=== PATIENT | male | born 1935 | race Caucasian/White ===

== ENCOUNTER 2016-12-20 17:04 | Emergency (ER) | payer MEDICARE ==
[~2016-12-20] VITALS: Ht 177.8 cm; Wt 100.5 kg
[2016-12-20 17:11] VITALS: BP 137/77
[2016-12-20 18:43] LABS: PH 5 (5-8); SQUAMOUS EPITHELIAL 0-2 /hpf; URINE APPEARANCE Hazy; URINE BACTERIA None Seen /hpf; URINE BILIRUBIN Negative (NEGATIVE); URINE BLOOD 2+ (NEGATIVE); URINE COLOR Amber; URINE GLUCOSE Negative (NEGATIVE); URINE KETONE Negative (NEGATIVE); URINE RBC >50 /hpf; URINE UROBILINOGEN >=4.0 mg/dL (NEGATIVE)
[2016-12-20 18:49] LABS: BASO % 0.1 % (0.0-2.0); EOS # 0.1 (0.0-0.7); EOS % 0.9 % (0-4.0); GRAN # 10.9 (1.4-6.5); GRAN % 79.9 % (42.2-75.2); HEMATOCRIT 44.6 % (42.0-52.0); HEMOGLOBIN 14.6 g/dl (13.5-18.0); LYMPH # 1.5 (1.2-3.4); LYMPH % 10.9 % (20.0-51.0); MEAN CELL VOLUME 92 fl (80.0-100.0); MEAN CORPUSCULAR HEMOGLOBIN 30 pg (27.0-31.0); MEAN CORPUSCULAR HGB CONC 33 g/dl (33.0-37.0); MEAN PLATELET VOLUME 11.1 fl (7.4-10.4); MONO # 1.1 (0.1-0.6); MONO % 7.9 % (1.7-9.3); PLATELET COUNT 183 K/mm3 (130-400); RED BLOOD COUNT 4.85 M/mm3 (4.20-5.60); REDCELL DISTRIBUTION WIDTH-CV 13.9 % (11.5-14.5); WHITE BLOOD COUNT 13.6 K/mm3 (4.8-10.8)
[2016-12-20 19:05] LABS: ALBUMIN 3.9 gm/dL (3.5-5.0); CALCIUM 8.9 mg/dL (8.4-10.2); CREATININE, serum 0.92 mg/dL (0.66-1.25); POTASSIUM 3.6 mmol/L (3.4-5.0); TOTAL PROTEIN 7.1 gm/dL (6.4-8.2)
[2016-12-20 19:12] LABS: TROPONIN-I 0.012 ng/mL (0.000-0.034)
[2016-12-20 19:24] LABS: C-REACTIVE PROTEIN 16.7 mg/dL (0.0-0.9)
[2016-12-20] MEDS ORDERED: ZOFRAN ODT4 MG PO (20:41)
[2016-12-20 20:57] VITALS: PULSE 100; TEMP 98.2
== END 2016-12-20 20:55 | disposition home or self-care (01) ==
LOC: COL.ER 17:04
PROVIDERS: Physician Assistant
DX: K86.89 Other specified diseases of pancreas (principal); R31.9 Hematuria, unspecified; R11.2 Nausea with vomiting, unspecified
CPT/HCPCS: J7030; Q9967

== ENCOUNTER 2020-08-13 23:15 | Inpatient (IN) | payer MEDICARE ==
[~2020-08-13] VITALS: Ht 175.3 cm; Wt 83.3 kg
[~2020-08-13 23:15] MED LIST: ZOFRAN ODT4 MG PO
[2020-08-14] VITALS (389 sets, daily range): BP systolic 98–130; BP diastolic 57–94; PULSE 88–123; TEMP 97.8–98.9; O2SAT 43–100
[2020-08-14 00:05] LABS: MEAN CELL VOLUME 90 fl (80.0-100.0); MEAN CORPUSCULAR HEMOGLOBIN 29 pg (27.0-31.0); MEAN CORPUSCULAR HGB CONC 33 g/dl (33.0-37.0); MEAN PLATELET VOLUME 11.1 fl (7.4-10.4); PLATELET COUNT 235 K/mm3 (130-400); RED BLOOD COUNT 5.11 M/mm3 (4.20-5.60); REDCELL DISTRIBUTION WIDTH-CV 14.6 % (11.5-14.5)
[2020-08-14 00:26] LABS: INR 1.5 (0.8-3.0); PROTHROMBIN TIME 16.5 SECONDS (9.7-12.8)
[2020-08-14 00:28] LABS: PARTIAL THROMBOPLASTIN TIME 28.4 SECONDS (26.0-37.0)
[2020-08-14 00:38] LABS: C-REACTIVE PROTEIN 22.8 mg/dL (0.0-0.9)
[2020-08-14 00:59] LABS: ALBUMIN 3.1 gm/dL (3.5-5.0); BILIRUBIN,TOTAL 0.6 mg/dL (0.0-1.0); CALCIUM 8.5 mg/dL (8.4-10.2); CREATININE, serum 2.21 (0.66-1.25); POTASSIUM 5.6 mmol/L (3.4-5.0); TOTAL PROTEIN 6.8 gm/dL (6.4-8.2)
[2020-08-14 01:00] LABS: ERYTHROCYTE SEDIMENTATION RATE 16 mm/hr (0-30)
[2020-08-14 01:15] LABS: TROPONIN-I 0.13 ng/mL (0.000-0.035)
[2020-08-14 01:16] LABS: LYMPHOCYTE 2 % (20.0-51.0); METAMYELOCYTE 1 % (0-0); MYELOCYTE 1 % (0-0); NEUTROPHILS 94 % (42.0-75.2); PLATELET ESTIMATE NORMAL (NORMAL)
[2020-08-14 03:13] LABS: COLLECTION METHOD CLEAN CATCH
[2020-08-14 03:27] LABS: PH 5 (5-8); SQUAMOUS EPITHELIAL 0-2 /hpf; URINE APPEARANCE Clear; URINE BACTERIA Rare /hpf; URINE BILIRUBIN Negative (NEGATIVE); URINE BLOOD 1+ (NEGATIVE); URINE COLOR Yellow; URINE GLUCOSE 1+ (NEGATIVE); URINE KETONE Negative (NEGATIVE); URINE LEUKOCYTE ESTERASE 1+ (NEGATIVE); URINE NITRATE Negative (NEGATIVE); URINE PROTEIN(semi-quant) Negative (NEGATIVE); URINE UROBILINOGEN Negative (NEGATIVE)
[2020-08-14 03:27] LABS: CALCIUM 7.9 mg/dL (8.4-10.2); CREATININE, serum 1.82 (0.66-1.25); POTASSIUM 4.7 mmol/L (3.4-5.0)
--- NOTE | 2020-08-14 06:28 | NUR ---
Vancomycin Initial Dosing Pharmacy Note Ordering provider: Bridger Fisher MD Indication/duration: Sepsis w/ possible UTI +/- cellulitis Relevant comorbidities: LABS: WBC = 24.2, SCr = 1.82 Recommendation: Will check troughs and follow levels. Loading dose: 1.5 grams Maintenance dose: 1.25 grams every 24 hours Trough goal: 15-20 ug/mL
[2020-08-14 06:34] LABS: CALCIUM 8.1 mg/dL (8.4-10.2); CREATININE, serum 1.7 (0.66-1.25); MAGNESIUM 2.5 mg/dL (1.6-2.3); PHOSPHOROUS 4.6 mg/dL (2.5-4.5); POTASSIUM 4.6 mmol/L (3.4-5.0)
[2020-08-14 06:44] LABS: TROPONIN-I 6 HR POST INITIAL 0.172 ng/mL (0.000-0.034)
--- NOTE | 2020-08-14 09:00 | NUR ---
All consults called to Urology; I/D & Critical Care MD. Reviewed patient's case with Dr. Dow today. At this time there are no new recommendations. Patient will have PICC line placed for easy access and blood draws. Patient is sleepy but answers all questions appropriatly. Skin w/d. pale in color. Lungs are diminshed in bases. No noted shortness of air. HR strong/regular. Abd soft; rounded. with noted bowel sounds. The right flank has red like rash noted with a long line of black "scab like" area. Skin at that spot is warm to touch. Patient c/o's discomfort in that area. El intact with clear yellow urine. Scrotal sack reddened with open areas throughout. Noted a moderate amount of yellow drainage from sores. Area cleansed and desenex powder applied as per orders. PPP. Noted 2+ edema in left lower leg. Patient moves independently in bed. Becomes tangled easily in cords. 02 on at 1L/NC.
--- NOTE | 2020-08-14 13:14 | NUR ---
Heparin qtt started at this time for report of bilateral DVT's. Attempted to explain purpose to patient but needs reinforced
--- NOTE | 2020-08-14 15:30 | NUR ---
Patient's friend Ms. Pike has arrived. Per patient she will be his medical contact. Licensing Engineer made aware. Update on patients condition given to her at this time. Questions answered. No other needs at this time.
--- NOTE | 2020-08-14 16:12 | NUR ---
Equal Opportunity Specialist met with patient to discuss discharge planning. Patient lives in [place] with his friends, Lurdes (ph#[phone]) and Fidencio. Patient does not have a primary care physician but was open to being set up with a PCP upon discharge. Patient states at one point he thought he had an apartment available at [facility], however he isn't sure if that's still available to him. Patient reports he does not have a preferred pharmacy as he does not regularly take medications. Patient has a cane that he uses for ambulation and reports ADLS have been very difficult for him recently. Patient isn't sure if he's ever done DPOA-HC, but reports his sand caster is Toro Schulz in [place]. SW discussed discharge planning with patient. SW discussed the possibility of rehab and patient advised he had a very bad experience with his mom's nursing facility in [place]. PT/OT have been ordered for patient. SHANNON then contacted patient's sand caster, Toro Schulz who advised patient does not have DPOA for Healthcare, only a trust for real estate. SW was contacted by admissions who advised patient's friend, Lurdes was here to see patient. SW escorted Lurdes to patient's room and again discussed DPOA-HC with patient. Patient states he is not and does have a daughter, but is estranged from her. Patient states he has not seen his daughter since she was 17 and could not recall her name at this time. Patient states when he last saw his daughter, she told him she wanted nothing to do with him and that he was a stranger to her. SW discussed the importance of Advance Directives especially when there is no contact with legal next of kin. Patient desires to designate his friend, Lurdes as DPOA-HC. SHANNON assisted patient in completing the form and brought in Connor DELATORRE to provide witness signature. Patient verbalized understanding of DPOA-HC and stated that signing this document meant that if needed, Lurdes could make medical decisions for him. SHANNON and RN provided witness signature, then SW provided original and copies to patient. SW also placed a copy on patient's chart. SHANNON again reviewed discharge planning with patient and Lurdes. SHANNON advised that PT/OT would work with patient and make recommendations. SHANNON also reviewed potential rehab options with patient and Lurdes. SHANNON then contacted Cordelia at [facility] and left a message. SHANNON will continue to follow. Discharge Plan: Awaiting PT/OT recommendations, possible placement needed.
--- NOTE | 2020-08-14 18:00 | NUR ---
Report given to JUAN RAMON Franklin on the surgical floor. Patient transfered upstairs to Room 344
--- NOTE | 2020-08-14 18:55 | NUR ---
Report with JUAN RAMON Hooks. Pt arrives to unit rm 344 via WC accompanied by JUAN RAMON Ryan. Pt assisted into bed and skin assessed. Call light in reach.
--- NOTE | 2020-08-14 19:51 | NUR ---
Patient's hep Xa came back at 0.78. Per protocol, heparin turned down to 13.5 ml/hr. Recheck will be at 0200.
--- NOTE | 2020-08-14 21:00 | NUR ---
Patient resting in bed. Requested a snack. Some complaints of pain in his scrotum. Scrotum is swollen and red. Patient is on 1 L of oxygen via nasal cannula. El catheter to dependent drainage draining clear yellow urine. IV fluids and heparin infusing to right upper arm PICC. Patient drinking lots of fluids. No other needs at this time. Call light in reach.
[2020-08-15] VITALS: BP 95/49; PULSE 79; TEMP 97.6
--- NOTE | 2020-08-15 01:56 | NUR ---
Lab called with positive blood cultures. NABIL Lopez, was notified.
[2020-08-15 04:03] VITALS: BP 110/58; PULSE 92; TEMP 98.4
[2020-08-15 07:31] LABS: INR 1.5 (0.8-3.0); PROTHROMBIN TIME 16.3 SECONDS (9.7-12.8)
[2020-08-15 07:39] LABS: ALBUMIN 2.3 gm/dL (3.5-5.0); BILIRUBIN,TOTAL 0.3 mg/dL (0.0-1.0); CALCIUM 7.5 mg/dL (8.4-10.2); CREATININE, serum 0.94 (0.66-1.25); MAGNESIUM 2.2 mg/dL (1.6-2.3); POTASSIUM 4.5 mmol/L (3.4-5.0); TOTAL PROTEIN 5.4 gm/dL (6.4-8.2)
[2020-08-15 07:40] VITALS: BP 109/56; PULSE 88; TEMP 98
[2020-08-15 07:54] LABS: MEAN CELL VOLUME 91 fl (80.0-100.0); MEAN CORPUSCULAR HGB CONC 32 g/dl (33.0-37.0); MEAN PLATELET VOLUME 11.3 fl (7.4-10.4); PLATELET COUNT 173 K/mm3 (130-400); REDCELL DISTRIBUTION WIDTH-CV 14.6 % (11.5-14.5)
[2020-08-15 08:11] LABS: HEMATOCRIT 32.6 % (42.0-52.0); HEMOGLOBIN 10.5 g/dl (13.5-18.0); MEAN CORPUSCULAR HEMOGLOBIN 29 pg (27.0-31.0)
--- NOTE | 2020-08-15 08:30 | NUR ---
Patient in bed resting. Alert and oriented to self. Assessment complete. Scrotum appears reddened. El to DD. Abrasions noted to right side/hip down to right knee, patient states from previous fall. Edema to BLE +2 Pitting. Denies further needs at this time.
[2020-08-15 08:40] LABS: BAND 5 % (0-10); EOSINOPHIL 4 % (0-4); LYMPHOCYTE 11 % (20.0-51.0); NEUTROPHILS 75 % (42.0-75.2); PLATELET ESTIMATE NORMAL (NORMAL)
--- NOTE | 2020-08-15 08:40 | NUR ---
Hep xa at 0.41 no change to rate at this time.
--- NOTE | 2020-08-15 11:26 | NUR ---
PT is recommending to consider SB or IPR. SW met with the patient to discuss their recommendation. The patient reports that he justs wants to rest right now. He states that he is very weak. SW then contacted the patient's DPOA-HC, Lurdes, to discuss the above. Lurdes reports that her and her are on their way up to the hospital and can talk about it then. Lurdes and Fidencio then arrived to the hospital. SW discussed PT's recommendations and informed them of IPR, SB, and the differerent SNF facilties. SW provided Lurdes with Medicare.[employer]'s list of SNFs in the [facility]. The patient was still pretty sleepy at this time. Lurdes would like some time to look over the the list and talk to the patient and Fidencio about the options, before deciding on preferences. SW to follow up at a later time.
[2020-08-15 11:34] VITALS: BP 116/65; PULSE 89; TEMP 98.4
--- NOTE | 2020-08-15 12:15 | NUR ---
First visit from the manager investment. Patient was asleep. Film Writer prayed for patient while standing outside their door.
--- NOTE | 2020-08-15 15:53 | NUR ---
SHANNON contacted the patient's friend/DPOA-HC, Lurdes, to follow up on preferences for post-acute rehab. Lurdes reports that the patient was still pretty sleepy when she was here, so they did not get a chance to talk about the facilities. Lurdes was agreeable for SHANNON to go ahead and send referrals to the local facilities, while they decide on who they would prefer. SHANNON consulted IPR Director, Ana. SHANNON contacted and faxed a referral to [facility], [facility], and [facility]. Awaiting screens.
[2020-08-15 17:00] VITALS: BP 113/60; PULSE 88; TEMP 98.1
--- NOTE | 2020-08-15 18:57 | NUR ---
Patient doing well thoughout the day, encouraged PO intake. Patient attempted to saw through diaz catheter with a butter knife this afternoon; unsuccessfull. Fluids and heparin infusing per orders at this time. No further needs at this time. Reported off to nightclub manager.
[2020-08-15 19:37] VITALS: BP 103/55; PULSE 87; TEMP 97.5
--- NOTE | 2020-08-15 21:00 | NUR ---
Patient refused to eat any dinner, but did drink some milk. Heparin drip DC and lovenox was administered. Redness and edema to scrotum noted. Black blisters to back and side are open in some spots. El catheter draining clear yellow urine. Fluids infusing per orders. No additional needs at this time.
--- NOTE | 2020-08-15 23:00 | NUR ---
Patient incontinent of liquidy stool. Cleaned patient up and changed linens. Dahiana care and cath care done. Repositioned patient.
[2020-08-16] VITALS (9 sets, daily range): BP systolic 92–132; BP diastolic 42–76; PULSE 73–99; TEMP 97.6–98.6
--- NOTE | 2020-08-16 01:30 | NUR ---
Patient incontinent of liquidy stool and feeling nauseous like he is going to throw up. Patient cleaned up, given a bed bath, and changed linens. PRN zofran administered. Will continur to monitor.
[2020-08-16 07:07] LABS: HEMOGLOBIN 11.6 g/dl (13.5-18.0); MEAN CELL VOLUME 93 fl (80.0-100.0); MEAN CORPUSCULAR HEMOGLOBIN 29 pg (27.0-31.0); MEAN CORPUSCULAR HGB CONC 31 g/dl (33.0-37.0); PLATELET COUNT 198 K/mm3 (130-400); RED BLOOD COUNT 3.95 M/mm3 (4.20-5.60); REDCELL DISTRIBUTION WIDTH-CV 14.6 % (11.5-14.5)
[2020-08-16 07:11] LABS: CALCIUM 7.8 mg/dL (8.4-10.2); CREATININE, serum 0.85 (0.66-1.25)
[2020-08-16 07:15] LABS: HEMATOCRIT 36.9 % (42.0-52.0)
[2020-08-16 07:44] LABS: TROPONIN-I 0.095 ng/mL (0.000-0.035)
--- NOTE | 2020-08-16 07:48 | NUR ---
CRITICAL TROPONIN RESULT OF 0.095 CALLED TO NABIL SALGADO. NO ORDERS GIVEN AT THIS TIME.
[2020-08-16 07:52] LABS: BAND 10 % (0-10); EOSINOPHIL 3 % (0-4); LYMPHOCYTE 6 % (20.0-51.0); METAMYELOCYTE 1 % (0-0); NEUTROPHILS 76 % (42.0-75.2); PLATELET ESTIMATE NORMAL (NORMAL)
--- NOTE | 2020-08-16 10:47 | NUR ---
Aylin, at [facility], reports that they are good to accept the patient and hope to have room availability once he is ready. As of now, they believe that they will. SW to fax updates to [facility], [facility], and [facility] and will continue to follow.
--- NOTE | 2020-08-16 12:01 | NUR ---
NABIL SALGADO CALLED AND NOTIFIED THAT THE PATIENTS BLOOD PRESSURE IS 98/43. AM METOPROLOL WAS HELD DUE TO MORNING BLOOD PRESSURE BEING LOW. NABIL SALGADO NOTIFIED THAT THERE WERE ORDERS TO DC PATIENTS IV FLUIDS, THEY ARE STILL RUNNING. TORB TO CONTINUE IV FLUIDS FOR NOW AND RE-CHECK PATIENTS BLOOD PRESSURE IN A HALF HOUR FROM NABIL SALGADO TO THIS NURSE.
--- NOTE | 2020-08-16 13:38 | NUR ---
NABIL SALGADO CALLED AND NOTIFIED THAT THE PATIENTS BLOOD PRESURE RE-CHECK MANUALLY WAS 101/42. NO ORDERS GIVEN AT THIS TIME.
--- NOTE | 2020-08-16 14:00 | NUR ---
NABIL SALGADO CALLED AND NOTIFIED THAT THE PATIENT HAS HAD SEVERAL LOOSE STOOLS OVERNIGHT, THIS MORNING AND AFTERNOON. THIS NURSE INQUIRING ABOUT A C.DIFF SAMPLE. PATIENT HAS BEEN DRINKING ALOT OF MILK AND ENSURE AND REFUSES TO EAT MUCH SOLID FOODS. NO ORDER GIVEN FOR C.DIFF COLLECTION AT THIS TIME. HAVE THE PATIENT SLOW DOWN ON MILK AND ENSURE FROM NABIL SALGADO TO THIS NURSE.
--- NOTE | 2020-08-16 14:25 | NUR ---
SHANNON attended clinical rounds. SHANNON then followed up with the patient, his DPOA-HC (Lurdes), and Lurdes's to follow up on preference. Lurdes reports that they still have not had a time to discuss or decide on preference yet. Lurdes reports that it is important that the patient is allowed visitors during his SNF stay. SHANNON informed Lurdes that the facilities are now allowing visitors, but they will all have different policies. Lurdes verbalized understanding. SW updated them on [facility]'s acceptance so far. SHANNON contacted and faxed updates to [facility], [facility], and [facility].
--- NOTE | 2020-08-16 18:30 | NUR ---
PATIENT RESTING IN BED. ALARMS ON. FITZGERALD CATHETER TO DEPENDENT DRAINAGE. DINNER TRAY AT THE BEDSIDE. CALL LIGHT WITHIN REACH. PATIENT DENIES NEEDS AT THIS TIME.
--- NOTE | 2020-08-16 19:00 | NUR ---
PT HAS HAD LOOSE STOOLS ALL DAY PER REPORT OF ROMEO THAYER RN. ROMEO REPORTED DID NOT WANT A STOOL SAMPLE SENT TO LAB.
--- NOTE | 2020-08-16 19:30 | NUR ---
PT RESTING IN BED. VERY DROWSY. PT FELL ASLEEP EATING EVENING MEAL. O2 1LNC. NO RESP DISTRESS AT THIS TIME. PT DENIES CHEST PAIN. OR DYSPNEA. JUST VERY TIRED. LLE MORE SWOLLEN THAN RT. BLE PULSES PRESENT AND WTT. WOUNDS TO RT MEDIAL SCROTUM KARLENE. SCROTUM RED. BACITRACIN APPLIED TO AREA. DESENEX POWDER APPLIED WELL. HAVING LOOSE BROWN INCONTINENT STOOL. PT NOT AWARE HE IS HAVING LOOSE STOOLS. NS AT 75CC/HR TO RT PICC. WILL CAP WHEN FINISHED. CALL LIGHT IN REACH. BED ALARM SET.
--- NOTE | 2020-08-16 22:40 | NUR ---
NOTIFIED RAFAEL FLANNERY OF PT'S ONGOING LOOSE INCONTINENT STOOLS. NW ORDER FOR GI PANEL NOTED.
--- NOTE | 2020-08-16 22:50 | NUR ---
STOOL SENT TO LAB FOR GI PANEL.
--- NOTE | 2020-08-17 00:40 | NUR ---
NOTIFIED RAFAEL OF GI PANEL POSITIVE FOR C-DIFF. PLACED IN ISOLATION. NEW ORDERS RECEIEVED FOR CLOTILDE.
--- NOTE | 2020-08-17 00:53 | NUR ---
PATIENT INFORMED OF LAB RESULT AND NOW PLACING HIM IN ISOLATION.
[2020-08-17 04:13] VITALS: BP 109/61; PULSE 87; TEMP 97.7
[2020-08-17 08:00] VITALS: BP 105/66; PULSE 76; TEMP 97.7
--- NOTE | 2020-08-17 10:00 | NUR ---
PATIENT SHIFT ASSESSMENT COMPLETED. MORNING MEDICATIONS ADMINISTERED. PATIENT IN BED FINISHING BREAKFAST TRAY. PATIENT DENIES ADDITIONAL NEEDS AT THIS TIME. CALL LIGHT WITHIN REACH. LEGS ELEVATED ON PILLOWS.
[2020-08-17 11:26] LABS: CLOSTRIDIUM DIFF A/B NEG; CLOSTRIDIUM DIFF A/B INTERP No C.diff present
--- NOTE | 2020-08-17 11:41 | NUR ---
Ana, IPR Director, reports that they have declined the patient.
--- NOTE | 2020-08-17 12:50 | NUR ---
C.DIFF RE-RAN BY LAB PER REQUEST. HOSPITALISTS NOTIFIED THAT THE C.DIFF TOXIN CAME BACK NEGATIVE. ISOLATION PRECAUTIONS DISCONTINUED.
[2020-08-17] MEDS ORDERED: CEPHALEXIN500 M1 PO (14:03)
[2020-08-17] MEDS ORDERED: DESENEX TP (14:04)
[2020-08-17] MEDS ORDERED: ELIQUIS 5MG PO (14:04)
[2020-08-17] MEDS ORDERED: BACITRACIN TOPIC1 TU TOP (14:05)
[2020-08-17] MEDS ORDERED: LOPRESSOR 225 MG/TAB PO (14:10)
--- NOTE | 2020-08-17 15:15 | NUR ---
PATIENT GIVEN FIRST DOSE OF PO KEFLEX. PATIENT DENIES PAIN AT THIS TIME. FRIEND AND DPOA AT THE BEDSIDE ORDERING PATIENT MEALS. PATIENT DENIES ADDITIONAL NEEDS AT THIS TIME. WILL CONTINUE TO MONITOR.
[2020-08-17 15:32] VITALS: BP 106/56; PULSE 84; TEMP 97.6
--- NOTE | 2020-08-17 16:27 | NUR ---
The patient was tested for c.diff. His c.diff results came back negative. SHANNON contacted and faxed updates to ESTRELLA, [facility], and [facility]. [facility] reports that they would like for the patient to be monitored and symptom free for 24 hours of loose stools. SHANNON updated the clinical team, the patient, and his DPOA-HC (Lurdes). Lurdes reports that they have chosen [facility] as their first preference. The patient is to tentatively d/c tomorrow. SHANNON presented and read the IM form outloud to the patient. The patient verbalized understanding and signed the form. SW provided him with a copy.
[2020-08-17 19:33] VITALS: BP 112/57; PULSE 86; TEMP 98
[2020-08-17 23:25] VITALS: BP 112/60; PULSE 79; TEMP 98.1
[2020-08-18 04:07] VITALS: BP 118/69; PULSE 75; TEMP 98.3
--- NOTE | 2020-08-18 06:06 | NUR ---
Patient did well throughout the shift. No complaints of pain or nausea. Indwelling catheter draining clear yellow urine.
[2020-08-18 07:42] VITALS: BP 113/59; PULSE 49; TEMP 98.4
[2020-08-18 11:33] VITALS: BP 131/71; PULSE 101; TEMP 98.4
--- NOTE | 2020-08-18 12:01 | NUR ---
SHANNON faxed updates to Aylin at [facility]. Aylin reports that they are able to accept the patient for a skilled stay. SHANNON updated the patient, clinical team, and the patient's DPOA-HC, Lurdes. They were all agreeable to the plan. Lurdes reports that she will be up to the hospital around 1230 and would like a clinical update from the doctor, PA, playback operator. SHANNON notified the PA. The patient is to discharge today, 08/18, to [facility] for a skilled stay. Transportation was scheduled at 1515, via [facility]. SHANNON informed the patient, his RN, and the patient's DPOA-HC (Lurdes) of the time. They were all agreeable to the time. No additional needs at this time.
[2020-08-18 15:07] VITALS: BP 131/71; PULSE 101; TEMP 98.4
[2020-08-18] MEDS ORDERED: FLOMAX 0.40.4 MG/CAP PO (15:27)
[2020-08-18] MEDS ORDERED: PROSCAR 5MG5 MG PO (15:27)
--- NOTE | 2020-08-18 16:00 | NUR ---
Patient has done well throughout the day, diaz maintined to DD with yellow urine present. PICC line discontinued by OLGA nurse. Pericare provided today. Patient denies pain throughout the day. Denies pain at this time. Denies further needs at this time. DPOA at bedside this afternoon. Patient out by wheelchair with [facility] staff.
== END 2020-08-18 16:00 | DRG 871 ==
LOC: COL.ER 23:15 → ICU 08-14 03:36 → SURG 08-14 03:36
PROVIDERS: Emergency Medicine; Internal Medicine Infectious Disease; Urology; ADMIT Internal Medicine
PROC: 02HV33Z Insertion of Infusion Device into Superior Vena Cava, Percutaneous Approach (ICD-10-PCS; principal; 2020-08-14)
DX: A40.9 Streptococcal sepsis, unspecified (principal); I21.A1 Myocardial infarction type 2; N17.9 Acute kidney failure, unspecified; N13.6 Pyonephrosis; I47.2 Ventricular tachycardia; L03.115 Cellulitis of right lower limb; I82.403 Acute embolism and thrombosis of unspecified deep veins of lower extremity, bilateral; R65.20 Severe sepsis without septic shock; N40.0 Benign prostatic hyperplasia without lower urinary tract symptoms; N36.8 Other specified disorders of urethra; I27.20 Pulmonary hypertension, unspecified; R07.89 Other chest pain
CPT/HCPCS: 99232-AI; 99233-AI; 99239; A4314; C1751; J0610; J0692; J0696; J1450; J1644; J1650; J1815; J1940; J2405; J3370; J7030; J7040; J7050; J7120

== ENCOUNTER 2020-08-22 08:41 | Day surgery (SDC) | payer SELFPAY ==
[~2020-08-22] VITALS: Ht 180.3 cm; Wt 90.2 kg
[~2020-08-22 08:41] MED LIST changes: +BACITRACIN TOPIC1 TU TOP; +CEPHALEXIN500 M1 PO; +DESENEX TP; +ELIQUIS 5MG PO; +FLOMAX 0.40.4 MG/CAP PO; +LOPRESSOR 225 MG/TAB PO; +PROSCAR 5MG5 MG PO
[2020-08-22 09:39] VITALS: BP 107/60; PULSE 82; TEMP 98
[2020-08-22] MEDS ORDERED: TYLENOL 325MG325 MG PO (09:56)
[2020-08-22] MEDS ORDERED: DULCOLAX S10 MG/SUPP RC (09:57)
[2020-08-22] MEDS ORDERED: DEBROX OT (09:57)
[2020-08-22] MEDS ORDERED: IMODIUM 2MG CAPS2 MG PO (09:58)
[2020-08-22] MEDS ORDERED: MILK OF MA400 MG/52 PO (09:59)
[2020-08-22] MEDS ORDERED: MYLANTA 150 ML150 M1 PO (10:00)
--- NOTE | 2020-08-22 11:25 | NUR ---
Bedside cystoscopy completed and diaz catheter is draining yellow urine. Patient tolerated the procedure well. Assisted with dressing and transfers back to into wheelchair. Given dismissal instructions and voices understanding of these.
--- NOTE | 2020-08-22 11:30 | NUR ---
Patient dismissed per wheelchair van back to [facility] with dismissal instructions in hand.
== END 2020-08-22 11:30 ==
LOC: SDCO 08:41
DX: N13.30 Unspecified hydronephrosis (principal); N19 Unspecified kidney failure; N32.0 Bladder-neck obstruction; N31.2 Flaccid neuropathic bladder, not elsewhere classified; N49.2 Inflammatory disorders of scrotum; D72.829 Elevated white blood cell count, unspecified; I82.409 Acute embolism and thrombosis of unspecified deep veins of unspecified lower extremity; Z79.01 Long term (current) use of anticoagulants; Z79.899 Other long term (current) drug therapy

== ENCOUNTER 2021-02-02 13:26 | Inpatient (IN) | payer MEDICARE ==
[~2021-02-02] VITALS: Wt 90.7 kg
[~2021-02-02 13:26] MED LIST changes: +DEBROX OT; +DULCOLAX S10 MG/SUPP RC; +IMODIUM 2MG CAPS2 MG PO; +MILK OF MA400 MG/52 PO; +MYLANTA 150 ML150 M1 PO; +TYLENOL 325MG325 MG PO
[2021-02-02 14:23] LABS: HEMATOCRIT 50.5 % (42.0-52.0); HEMOGLOBIN 16.6 g/dl (13.5-18.0); MEAN CELL VOLUME 92 fl (80.0-100.0); MEAN CORPUSCULAR HEMOGLOBIN 30 pg (27.0-31.0); MEAN CORPUSCULAR HGB CONC 33 g/dl (33.0-37.0); MEAN PLATELET VOLUME 11.6 fl (7.4-10.4); PLATELET COUNT 247 K/mm3 (130-400); RED BLOOD COUNT 5.52 M/mm3 (4.20-5.60); REDCELL DISTRIBUTION WIDTH-CV 14.7 % (11.5-14.5)
[2021-02-02 14:42] LABS: COLLECTION METHOD CATHETER
[2021-02-02 14:49] LABS: LYMPHOCYTE 14 % (20.0-51.0); NEUTROPHILS 84 % (42.0-75.2)
[2021-02-02 14:50] LABS: HYPOCHROMIA 1+; PLATELET ESTIMATE NORMAL (NORMAL)
[2021-02-02 14:58] LABS: AMORPHOUS CRYSTAL Present /uL; PH 8 (5-8); URINE APPEARANCE Turbid; URINE BACTERIA Many /hpf; URINE BILIRUBIN Negative (NEGATIVE); URINE BLOOD 3+ (NEGATIVE); URINE COLOR Yellow; URINE GLUCOSE Negative (NEGATIVE); URINE KETONE Negative (NEGATIVE); URINE LEUKOCYTE ESTERASE 3+ (NEGATIVE); URINE NITRATE Negative (NEGATIVE); URINE PROTEIN(semi-quant) 3+ (NEGATIVE); URINE RBC >50 /hpf; URINE UROBILINOGEN Negative (NEGATIVE)
[2021-02-02 15:15] LABS: TROPONIN-I 0.048 ng/mL (0.00-0.033)
[2021-02-02 15:20] LABS: ALBUMIN 3.4 gm/dL (3.4-4.8); BILIRUBIN,TOTAL 0.8 mg/dL (0.2-1.2); CALCIUM 9.4 mg/dL (8.4-10.2); CREATININE, serum 3.56 mg/dL (0.72-1.25); POTASSIUM 5.1 mmol/L (3.5-4.5); TOTAL PROTEIN 7.1 gm/dL (6.2-8.1)
[2021-02-02 16:37] LABS: ARTERIAL BLD GAS TCO2 CT 14.4; ARTERIAL BLOOD GAS BASE EXCESS -9.5 (-2-2); ARTERIAL BLOOD GAS HCO3 13.7 meq/L (22-26); ARTERIAL BLOOD GAS PCO2 24.1 mmHg (35-45); ARTERIAL BLOOD GAS PO2 84.7 mmHg (80-100); ARTERIAL BLOOD GAS pH 7.37 (7.35-7.45)
--- NOTE | 2021-02-02 20:00 | NUR ---
Patient to medical room 318 at this time. Close friend and DPOA, Lurdes, is at bedside. Patient is alert and oriented with complaints of pain in LLQ and nausea. Shortly after arrival he vomits 200 mls of dark green, liquid bile.
[2021-02-02 20:28] LABS: HEMATOCRIT 46.2 % (42.0-52.0); HEMOGLOBIN 15.1 g/dl (13.5-18.0)
[2021-02-02 20:38] VITALS: BP 105/63; PULSE 121; TEMP 99.4
[2021-02-02 20:47] LABS: CALCIUM 8.5 mg/dL (8.4-10.2); CREATININE, serum 2.3 mg/dL (0.72-1.25); POTASSIUM 4.4 mmol/L (3.5-4.5)
[2021-02-02 21:00] LABS: TROPONIN-I 6 HR POST INITIAL 0.054 ng/mL (0.00-0.033)
[2021-02-02 23:23] VITALS: BP 114/57; PULSE 120; TEMP 97.8
[2021-02-03] VITALS (7 sets, daily range): BP systolic 91–143; BP diastolic 46–70; PULSE 92–120; TEMP 97.9–982
[2021-02-03 05:55] LABS: ALBUMIN 2.7 gm/dL (3.4-4.8); BILIRUBIN,TOTAL 0.9 mg/dL (0.2-1.2); CALCIUM 8.7 mg/dL (8.4-10.2); CREATININE, serum 1.84 mg/dL (0.72-1.25); POTASSIUM 4.6 mmol/L (3.5-4.5); TOTAL PROTEIN 6.1 gm/dL (6.2-8.1)
--- NOTE | 2021-02-03 06:00 | NUR ---
Patient provided with Tylenol for abdominal pain and zofran for nausea. He has rested for most of the night. Bicarb gtt infusing into left forearm. Call light in reach.
[2021-02-03 06:03] LABS: TROPONIN-I 0.062 ng/mL (0.00-0.033)
--- NOTE | 2021-02-03 06:10 | NUR ---
Troponin .062. DOOR CLAMP OPERATOR notified. Patient denies chest pain.
[2021-02-03 06:51] LABS: HEMATOCRIT 42.5 % (42.0-52.0); HEMOGLOBIN 14.1 g/dl (13.5-18.0); MEAN CELL VOLUME 91 fl (80.0-100.0); MEAN CORPUSCULAR HEMOGLOBIN 30 pg (27.0-31.0); MEAN CORPUSCULAR HGB CONC 33 g/dl (33.0-37.0); MEAN PLATELET VOLUME 12.1 fl (7.4-10.4); PLATELET COUNT 167 K/mm3 (130-400); RED BLOOD COUNT 4.69 M/mm3 (4.20-5.60); REDCELL DISTRIBUTION WIDTH-CV 14.9 % (11.5-14.5)
[2021-02-03 06:53] LABS: INR 1.8 (0.8-3.0); PROTHROMBIN TIME 19.6 SECONDS (9.7-12.8)
[2021-02-03 07:19] LABS: BAND 12 % (0-10); EOSINOPHIL 1 % (0-4); HYPOCHROMIA 1+; LYMPHOCYTE 13 % (20.0-51.0); METAMYELOCYTE 2 % (0-0); NEUTROPHILS 65 % (42.0-75.2); PLATELET ESTIMATE NORMAL (NORMAL)
--- NOTE | 2021-02-03 08:33 | NUR ---
Pt awake upon entry, sitting up in bed. No C/O pain at this time. Shift assessment complete, left Pt in bed, lowest position, call light in reach.
--- NOTE | 2021-02-03 10:44 | NUR ---
First visit from the associate account manager. No needs right now.
--- NOTE | 2021-02-03 11:22 | NUR ---
SW met with patient about care assessment. Patient indicated to call friend Lurdes for assessment . SW attempted call, no answer. WIll attempt again.
[2021-02-03 14:41] LABS: CREATININE, serum 1.81 mg/dL (0.72-1.25); SODIUM 141 mmol/L (137-145)
--- NOTE | 2021-02-04 00:46 | NUR ---
Patient resting comfortably. He has denied need for pain or nausea medication tonight. Call light in reach.
[2021-02-04 02:33] VITALS: BP 133/59; PULSE 121; TEMP 98.6
[2021-02-04 07:25] LABS: INR 1.5 (0.8-3.0); PROTHROMBIN TIME 17.2 SECONDS (9.7-12.8)
[2021-02-04 07:50] LABS: MEAN CELL VOLUME 90 fl (80.0-100.0); MEAN CORPUSCULAR HGB CONC 33 g/dl (33.0-37.0); MEAN PLATELET VOLUME 11.6 fl (7.4-10.4); PLATELET COUNT 133 K/mm3 (130-400); RED BLOOD COUNT 3.98 M/mm3 (4.20-5.60); REDCELL DISTRIBUTION WIDTH-CV 14.7 % (11.5-14.5)
[2021-02-04 07:56] LABS: HEMATOCRIT 35.9 % (42.0-52.0); MEAN CORPUSCULAR HEMOGLOBIN 30 pg (27.0-31.0)
[2021-02-04 08:16] VITALS: BP 135/73; PULSE 117; TEMP 98.7
--- NOTE | 2021-02-04 09:43 | NUR ---
Pt sleeping upon entry, easily awakened. Denies pain at this time. Shift assessment complete, left Pt call light in reach, bed in lowest position.
--- NOTE | 2021-02-04 10:09 | NUR ---
Lureds called SW back for Care Assessment: Lurdes reports that patient resides alone and has interim home health care, only the nursing care. Patient is in need of care at home, for laundry/ cleaning supports. Patient is reported be able to cook for himself. Primary Care is [facility]-last appointment november. Rx: [facility]. Walker, no oxygen, no heart related issues. POA: Lurdes Pike. SULLY reports that the patient would be okay with rehab if he needs it. SHANNON discussed care options and whether patient would benifit from assisted living. POA reports that the [facility] and enjoys his apartment and does not want any assisted living supports. POA reports that patient has meals on wheels as supports to food and can get around easily. Patient was at [facility] early this year for 3 weeks and then went home with [facility] which is maintained at this time. Plan is home unless otherwise stated need by hsp.
[2021-02-04 10:51] LABS: ALBUMIN 2.4 gm/dL (3.4-4.8); BILIRUBIN,TOTAL 0.6 mg/dL (0.2-1.2); CALCIUM 8.5 mg/dL (8.4-10.2); CREATININE, serum 1.31 mg/dL (0.72-1.25); POTASSIUM 3.8 mmol/L (3.5-4.5)
[2021-02-04 11:31] LABS: BAND 6 % (0-10); LYMPHOCYTE 9 % (20.0-51.0); NEUTROPHILS 83 % (42.0-75.2); PLATELET ESTIMATE NORMAL (NORMAL)
[2021-02-04 12:12] VITALS: BP 110/48; PULSE 125; TEMP 98.8
[2021-02-04 16:53] VITALS: BP 108/59; PULSE 106; TEMP 97.8
[2021-02-04 20:09] VITALS: BP 111/62; PULSE 107; TEMP 99.3
--- NOTE | 2021-02-04 22:22 | NUR ---
Patient pleaseant, alert and oriented. Patient denies N/V. Patient reports having some stomach pain but denies need for pain med at this time. IVF infusing well per MAR. El catheter patent and draining tea color urine. Call light in reach. Will continue to monitor.
[2021-02-05 01:35] VITALS: BP 104/76; PULSE 73; TEMP 98.4
[2021-02-05 04:35] VITALS: BP 108/56; PULSE 51; TEMP 98.9
[2021-02-05 06:59] LABS: HEMOGLOBIN 10.8 g/dl (13.5-18.0); MEAN CELL VOLUME 90 fl (80.0-100.0); MEAN CORPUSCULAR HEMOGLOBIN 30 pg (27.0-31.0); MEAN CORPUSCULAR HGB CONC 33 g/dl (33.0-37.0); PLATELET COUNT 117 K/mm3 (130-400); RED BLOOD COUNT 3.63 M/mm3 (4.20-5.60); REDCELL DISTRIBUTION WIDTH-CV 14.7 % (11.5-14.5)
[2021-02-05 07:00] LABS: HEMATOCRIT 32.6 % (42.0-52.0)
[2021-02-05 07:10] LABS: INR 1.2 (0.8-3.0); PROTHROMBIN TIME 13.4 SECONDS (9.7-12.8)
[2021-02-05 07:17] LABS: ALBUMIN 2.1 gm/dL (3.4-4.8); BILIRUBIN,TOTAL 0.6 mg/dL (0.2-1.2); CALCIUM 8.5 mg/dL (8.4-10.2); CREATININE, serum 1.02 mg/dL (0.72-1.25); POTASSIUM 3.4 mmol/L (3.5-4.5); TOTAL PROTEIN 5.4 gm/dL (6.2-8.1)
[2021-02-05 08:00] VITALS: BP 110/52; PULSE 56; TEMP 98.8
[2021-02-05 08:53] LABS: BAND 21 % (0-10); BASOPHIL 1 % (0-2); EOSINOPHIL 1 % (0-4); LYMPHOCYTE 4 % (20.0-51.0); NEUTROPHILS 70 % (42.0-75.2); OVALOCYTES 1+; PLATELET ESTIMATE DECREASED (NORMAL)
--- NOTE | 2021-02-05 09:25 | NUR ---
Pt awake and alert upon entry, no C/O pain at this time. Medication given with sip of water. Shift assessment complete, left Pt call light in reach, bed in lowest position.
[2021-02-05 11:24] VITALS: BP 111/47; PULSE 95; TEMP 98.4
--- NOTE | 2021-02-05 16:18 | NUR ---
Granite Polisher Machine followed up with patient's DPOA-HC, Lurdes about rehab. Lurdes advised preferences for rehab are 1) [facility] 2) [facility] and 3) [facility]. Lurdes advised patient really enjoyed [facility] last time he was there. SW contacted facilities and gave referrals.
[2021-02-05 16:33] VITALS: BP 106/67; PULSE 97; TEMP 98.8
--- NOTE | 2021-02-05 19:21 | NUR ---
Shift report received from JUAN RAMON Espino. Patient currently resting in bed, K+ replacement infusing into left forearm IV. No complaints at this time. Call light in reach.
--- NOTE | 2021-02-05 20:00 | NUR ---
Assessment complete. Patient is alert and oriented, through drowsy. He complaints of mild pain in LLQ but denies need for Tylenol. He is nauseas at this time and Zofran is administered. El catheter remains in place and is draining dark yellow urine. Patient on 2 liters 02 via oxymask. Call light in reach, will continue to monitor.
[2021-02-05 20:04] VITALS: BP 105/39; PULSE 80; TEMP 98.3
--- NOTE | 2021-02-05 22:00 | NUR ---
Patient has been incontinent of 2 large, liquid stools. GI panel collected this AM was negative. Dahiana care, linen change and partial bed bath provided. PRN order obtained for imodium.
[2021-02-06] VITALS (15 sets, daily range): BP systolic 17–130; BP diastolic 51–74; PULSE 64–119; TEMP 97.3–98.8
[2021-02-06 06:53] LABS: BASO # 0.1 K/mm3 (0.0-0.2); BASO % 0.5 % (0.0-2.0); EOS # 0.2 K/mm3 (0.0-0.7); EOS % 2.1 % (0-4.0); LYMPH # 0.8 K/mm3 (1.2-3.4); LYMPH % 8.6 % (20.0-51.0); MEAN CELL VOLUME 89 fl (80.0-100.0); MEAN CORPUSCULAR HEMOGLOBIN 30 pg (27.0-31.0); MEAN CORPUSCULAR HGB CONC 34 g/dl (33.0-37.0); MEAN PLATELET VOLUME 11.7 fl (7.4-10.4); MONO # 0.5 K/mm3 (0.1-0.6); MONO % 4.8 % (1.7-9.3); PLATELET COUNT 123 K/mm3 (130-400); RED BLOOD COUNT 3.65 M/mm3 (4.20-5.60); REDCELL DISTRIBUTION WIDTH-CV 14.6 % (11.5-14.5)
[2021-02-06 06:56] LABS: HEMATOCRIT 32.6 % (42.0-52.0)
[2021-02-06 07:11] LABS: CALCIUM 8.2 mg/dL (8.4-10.2); CREATININE, serum 0.88 mg/dL (0.72-1.25); POTASSIUM 3.4 mmol/L (3.5-4.5)
--- NOTE | 2021-02-06 07:58 | NUR ---
PT OFF OF UNIT FOR PROCEDURE.
--- NOTE | 2021-02-06 08:12 | NUR ---
SEE MERGE FOR MEDICATION ADMINISTRATION TIMES/DOSAGES AND INTRA/POST SEDATION ASSESSMENT.
--- NOTE | 2021-02-06 10:11 | NUR ---
Initial visit; Patient thanked Information Systems Audit Manager for looking in on him, offering prayer and God's blessings. Information Systems Audit Manager will follow up.
--- NOTE | 2021-02-06 11:19 | NUR ---
PT ARRIVED BACK FROM PROCEDURE AND WAS PLACED ON POST-OP CHECKS. VITALS ARE STABLE, DRESSING SITE C/D/I, PT NOT COMPLAINING OF MILD DISCOMFORT, PT IS DROWSY. WILL CONTINUE TO MONITOR.
--- NOTE | 2021-02-06 13:28 | NUR ---
PT HAD FOUR LOOSE STOOLS, IMMODIUM GIVEN PER ORDERS. WILL CONTINUE TO MONITOR.
--- NOTE | 2021-02-06 16:26 | NUR ---
[facility] has declined referral. SHANNON contacted [place] at [facility] who advised they have no beds today but are still reviewing referral. SHANNON spoke with Ana, IPR Director who continues to follow.
--- NOTE | 2021-02-06 18:12 | NUR ---
PT HAD MULTIPLE EPISODES OF WATERY DIARRHEA. DENIES ANY ABDOMINAL PAIN, REPORTS NOT HAVING MUCH OF AN APPETITE. IMMODIUM GIVEN TWICE FOR DIARRHEA. WILL CONTINUE TO MONITOR.
[2021-02-07 05:30] VITALS: BP 144/65; PULSE 92; TEMP 98.2
--- NOTE | 2021-02-07 07:00 | NUR ---
PT WAS LAYING IN BED SLEEPING DURING SHIFT CHANGE. CHECKED IN ON PATIENT. OXYMASK WAS RESTING AT THIS CHIN, REPLACED THE OXYMASK AND HE STATED HE WANTED BREAKFAST, HOWEVER IS ON A CLEAR LIQUID DIET.
[2021-02-07 07:39] LABS: HEMATOCRIT 38.2 % (42.0-52.0); HEMOGLOBIN 12.5 g/dl (13.5-18.0); MEAN CELL VOLUME 90 fl (80.0-100.0); MEAN CORPUSCULAR HEMOGLOBIN 29 pg (27.0-31.0); MEAN CORPUSCULAR HGB CONC 33 g/dl (33.0-37.0); PLATELET COUNT 151 K/mm3 (130-400); RED BLOOD COUNT 4.26 M/mm3 (4.20-5.60); REDCELL DISTRIBUTION WIDTH-CV 14.7 % (11.5-14.5)
[2021-02-07 07:44] VITALS: BP 134/79; PULSE 70; TEMP 98.2
[2021-02-07 07:56] LABS: CALCIUM 8.4 mg/dL (8.4-10.2); CREATININE, serum 0.75 mg/dL (0.72-1.25); POTASSIUM 3.7 mmol/L (3.5-4.5)
[2021-02-07 08:28] LABS: BAND 16 % (0-10); EOSINOPHIL 1 % (0-4); NEUTROPHILS 65 % (42.0-75.2); PLATELET ESTIMATE NORMAL (NORMAL)
[2021-02-07 08:29] LABS: LYMPHOCYTE 12 % (20.0-51.0)
[2021-02-07 11:18] VITALS: BP 129/78; PULSE 103; TEMP 98.1
[2021-02-07] MEDS ORDERED: OMNICEF 300MG300 MG PO (14:58)
[2021-02-07] MEDS ORDERED: TYLENOL 325MG325 MG PO (14:59)
[2021-02-07] MEDS ORDERED: TOPROL XL 25MG25 MG PO (14:59)
[2021-02-07] MEDS ORDERED: IMODIUM 2MG CAPS2 MG PO (15:00)
[2021-02-07] MEDS ORDERED: MYLANTA 150 ML150 M1 PO (15:00)
[2021-02-07] MEDS ORDERED: DEBROX OT (15:00)
[2021-02-07] MEDS ORDERED: PROBIOTIC ACID1 EAC3 PO (15:01)
[2021-02-07] MEDS ORDERED: DESENEX TP (15:01)
[2021-02-07] MEDS ORDERED: BACITRACIN TOPIC1 TU TOP (15:02)
[2021-02-07] MEDS ORDERED: MILK OF MA400 MG/52 PO (15:02)
[2021-02-07] MEDS ORDERED: DULCOLAX S10 MG/SUPP RC (15:02)
[2021-02-07] MEDS ORDERED: PROTONIX 40MG T40 MG PO (15:02)
--- NOTE | 2021-02-07 16:21 | NUR ---
Masood at [facility] advised they can accept patient today. SHANNON met with patient who is agreeable to this plan. SHANNON contacted patient's DPOA-HC, Lurdes and advised that [facility] has declined and [facility] can accept. Lurdes is upset [facility] declined and feels it is likely because patient has an unpaid bill at [facility]. Lurdes reports they have been working on Medicaid for patient. Lurdes is agreeable to discharge to [facility]. SHANNON set transport time for 1600. SHANNON faxed discharge orders and negative COVID to Masood at [facility]. Discharge Plan: [facility] SNF
== END 2021-02-07 17:57 | DRG 698 ==
LOC: COL.ER 13:26 → MEDICAL 15:40
PROVIDERS: Emergency Medicine; Internal Medicine; Internal Medicine Gastroenterology; Physician Assistant; Student in an Organized Health Care Education/Training Program; ADMIT Internal Medicine
PROC: 0DB68ZX Excision of Stomach, Via Natural or Artificial Opening Endoscopic, Diagnostic (ICD-10-PCS; 2021-02-04)
PROC: 0DB58ZX Excision of Esophagus, Via Natural or Artificial Opening Endoscopic, Diagnostic (ICD-10-PCS; principal; 2021-02-04 11:00)
PROC: 06H03DZ Insertion of Intraluminal Device into Inferior Vena Cava, Percutaneous Approach (ICD-10-PCS; 2021-02-06)
DX: T83.518A Infection and inflammatory reaction due to other urinary catheter, initial encounter (principal); A41.9 Sepsis, unspecified organism; R65.20 Severe sepsis without septic shock; K20.91 Esophagitis, unspecified with bleeding; N39.0 Urinary tract infection, site not specified; N17.9 Acute kidney failure, unspecified; E87.2 Acidosis; R18.8 Other ascites; E44.1 Mild protein-calorie malnutrition; K31.1 Adult hypertrophic pyloric stenosis; J98.11 Atelectasis; E86.0 Dehydration; N40.0 Benign prostatic hyperplasia without lower urinary tract symptoms; Y73.1 Therapeutic (nonsurgical) and rehabilitative gastroenterology and urology devices associated with adverse incidents; I07.1 Rheumatic tricuspid insufficiency; K44.9 Diaphragmatic hernia without obstruction or gangrene; E87.6 Hypokalemia; B96.4 Proteus (mirabilis) (morganii) as the cause of diseases classified elsewhere; I49.3 Ventricular premature depolarization; Z20.822 Contact with and (suspected) exposure to COVID-19; I25.2 Old myocardial infarction; Z86.718 Personal history of other venous thrombosis and embolism; Z68.29 Body mass index [BMI] 29.0-29.9, adult
CPT/HCPCS: 99223-AI; 99233-AI; 99239; C1880; C1894; C9113; J0692; J0696; J1644; J2250; J2405; J2543; J2704; J3010; J3480; J7030; J7120; P9016; Q9967

== ENCOUNTER → 2021-02-19 | Outpatient (CLI) | payer MEDICARE ==
[~2021-02-19] MED LIST changes: +OMNICEF 300MG300 MG PO; +PROBIOTIC ACID1 EAC3 PO; +PROTONIX 40MG T40 MG PO; +TOPROL XL 25MG25 MG PO
[2021-02-19 18:18] LABS: BASO # 0.1 K/mm3 (0.0-0.2); BASO % 0.8 % (0.0-2.0); EOS # 0.2 K/mm3 (0.0-0.7); EOS % 2.5 % (0-4.0); GRAN # 5.5 K/mm3 (1.4-6.5); GRAN % 69.4 % (42.2-75.2); HEMATOCRIT 36.6 % (42.0-52.0); HEMOGLOBIN 11.8 g/dl (13.5-18.0); LYMPH # 1.6 K/mm3 (1.2-3.4); LYMPH % 20.4 % (20.0-51.0); MEAN CELL VOLUME 91 fl (80.0-100.0); MEAN CORPUSCULAR HEMOGLOBIN 29 pg (27.0-31.0); MEAN CORPUSCULAR HGB CONC 32 g/dl (33.0-37.0); MEAN PLATELET VOLUME 11.8 fl (7.4-10.4); MONO # 0.5 K/mm3 (0.1-0.6); MONO % 6.6 % (1.7-9.3); PLATELET COUNT 364 K/mm3 (130-400); RED BLOOD COUNT 4.04 M/mm3 (4.20-5.60); REDCELL DISTRIBUTION WIDTH-CV 15.3 % (11.5-14.5)
[2021-02-19 18:49] LABS: ALBUMIN 2.6 gm/dL (3.4-4.8); BILIRUBIN,TOTAL 0.4 mg/dL (0.2-1.2); CALCIUM 8.1 mg/dL (8.4-10.2); CHOLESTEROL RISK RATIO 4.5; CREATININE, serum 1.02 mg/dL (0.72-1.25); POTASSIUM 4.4 mmol/L (3.5-4.5); TOTAL PROTEIN 6.8 gm/dL (6.2-8.1)
[2021-02-19 20:11] LABS: THYROID STIMULATING HORMONE 1.871 uIU/mL (0.350-4.940)
== END ==
LOC: ZLAB.STJ 18:01
PROVIDERS: Internal Medicine
DX: I42.9 Cardiomyopathy, unspecified (principal); E83.10 Disorder of iron metabolism, unspecified; D51.9 Vitamin B12 deficiency anemia, unspecified; E78.5 Hyperlipidemia, unspecified; R94.6 Abnormal results of thyroid function studies; R79.9 Abnormal finding of blood chemistry, unspecified

== ENCOUNTER → 2021-03-01 | Outpatient (CLI) | payer SELFPAY | LOC: COL.RAD 09:07 | DX: R11.10 Vomiting, unspecified (principal); R11.0 Nausea; R14.0 Abdominal distension (gaseous); R63.30 Feeding difficulties, unspecified ==

== ENCOUNTER 2021-04-11 10:12 | Day surgery (SDC) | payer MEDICARE ==
[~2021-04-11] VITALS: Ht 175.3 cm; Wt 86.2 kg
[2021-04-11 11:10] VITALS: BP 142/93; PULSE 77; TEMP 98.9
[2021-04-11] MEDS ORDERED: LIPITOR20 MG PO (11:15)
[2021-04-11] MEDS ORDERED: HIGH POTENCY M1 EAC1 PO (11:16)
[2021-04-11] MEDS ORDERED: PROTONIX 40MG T40 MG PO (11:41)
[2021-04-11 11:50] VITALS: BP 118/72; PULSE 73; TEMP 97.8
[2021-04-11 12:05] VITALS: BP 119/81; PULSE 71
[2021-04-11 12:20] VITALS: BP 125/83; PULSE 66
[2021-04-11 12:35] VITALS: BP 133/73; PULSE 71
--- NOTE | 2021-04-11 13:52 | NUR ---
[address] [facility] [facility]. PATIENT AMBULATED TO CHAIR WITH WALKER AND SBA. VSS. POST PROCEDURE CARE STARTED. PATIENT DPOA AT CHAIRSIDE. 1205 DR. MEDINA IN ROOM SPEAKING WITH PATIENT. PATIENT TAKING JELLO, APPLE SAUCE AND CRANBERRY JUICE PO. 1220 PATIENT ALERT. VSS. REPORTS THAT HE IS TOLERATING PO WELL. 1235 PATIENT ALERT. VSS. D/C INSTRUCTIONS GIVEN VERBALLY AND IN WRITING TO PATIENT AND PATIENT'S DPOA. QUESTIONS INVITED AND ANSWERED. BOTH VERBALIZED UNDERSTANDING. IV D/C'D. CATH INTACT. TOLERATED WELL. PATIENT UP GETTING DRESSED. 1251 PATIENT D/C'D TO POV VIA W/C AIT PATIENT'S DPOA.
== END 2021-04-11 12:51 | disposition home or self-care (01) ==
LOC: SDCO 10:12
DX: K21.00 Gastro-esophageal reflux disease with esophagitis, without bleeding (principal); K44.9 Diaphragmatic hernia without obstruction or gangrene; K31.89 Other diseases of stomach and duodenum; K92.2 Gastrointestinal hemorrhage, unspecified; K31.1 Adult hypertrophic pyloric stenosis; K22.89 Other specified disease of esophagus; R63.0 Anorexia; E78.5 Hyperlipidemia, unspecified; N17.9 Acute kidney failure, unspecified; N18.9 Chronic kidney disease, unspecified; Z79.899 Other long term (current) drug therapy
CPT/HCPCS: J2704; J3010; J7030

== ENCOUNTER 2021-05-09 13:34 | Inpatient (IN) | payer MEDICARE ==
[~2021-05-09] VITALS: Ht 175.3 cm; Wt 83.0 kg
[~2021-05-09 13:34] MED LIST changes: +HIGH POTENCY M1 EAC1 PO; +LIPITOR20 MG PO
[2021-05-09 14:12] LABS: COLLECTION METHOD IN
[2021-05-09] MEDS ORDERED: PROTONIX 40MG T40 MG PO (14:28)
[2021-05-09 14:37] LABS: BASO # 0.1 K/mm3 (0.0-0.2); BASO % 0.4 % (0.0-2.0); EOS % 0.3 % (0.0-4.0); GRAN # 9.9 K/mm3 (1.4-6.5); GRAN % 81.4 % (42.2-75.2); HEMATOCRIT 43.6 % (42.0-52.0); HEMOGLOBIN 14.8 g/dl (13.5-18.0); LYMPH # 1.3 K/mm3 (1.2-3.4); MEAN CELL VOLUME 89 fl (80.0-100.0); MEAN CORPUSCULAR HEMOGLOBIN 30 pg (27-31); MEAN CORPUSCULAR HGB CONC 34 g/dl (33.0-37.0); MEAN PLATELET VOLUME 11.6 fl (7.4-10.4); MONO # 0.8 K/mm3 (0.1-0.6); MONO % 6.7 % (1.7-9.3); PLATELET COUNT 264 K/mm3 (130-400); RED BLOOD COUNT 4.88 M/mm3 (4.20-5.60); REDCELL DISTRIBUTION WIDTH-CV 13.9 % (11.5-14.5)
[2021-05-09 14:54] LABS: ALBUMIN 3.5 gm/dL (3.4-4.8); BILIRUBIN,TOTAL 0.8 mg/dL (0.2-1.2); CALCIUM 9.2 mg/dL (8.4-10.2); CREATININE, serum 1.58 mg/dL (0.72-1.25); POTASSIUM 3.7 mmol/L (3.5-4.5); TOTAL PROTEIN 7.3 gm/dL (6.2-8.1)
[2021-05-09 15:52] LABS: SQUAMOUS EPITHELIAL None Seen /hpf (0-10); URINE BACTERIA Many /hpf (NONE SEEN)
[2021-05-09 15:53] LABS: URINE TRIPLE PHOSPHATE CRYSTAL Present (NOT PRESENT)
[2021-05-09 16:02] LABS: URINE APPEARANCE Turbid (CLEAR/HAZY)
[2021-05-09 16:03] LABS: PH 9 (5-8); URINE BILIRUBIN Positive (NEGATIVE); URINE BLOOD Negative (NEGATIVE); URINE GLUCOSE Negative (NEGATIVE); URINE KETONE Negative (NEGATIVE); URINE LEUKOCYTE ESTERASE 3+ (NEGATIVE); URINE NITRATE Negative (NEGATIVE); URINE PROTEIN(semi-quant) 3+ (NEGATIVE); URINE UROBILINOGEN Negative (NEGATIVE)
[2021-05-09 16:05] LABS: URINE COLOR OTHER (YELLOW)
--- NOTE | 2021-05-09 18:32 | NUR ---
ADMISSION INTAKE AND ASSESSMENT COMPLETED. ORIENTED PT TO ROOM. WILL PASS ALONG REPORT TO NIGHT RN.
--- NOTE | 2021-05-09 20:00 | NUR ---
Patient is resting in bed, alert and orientex x 4, VSS, denies pain, nausea or vomiting. Telemetry in place. NSR 90's. El inplace, yellow with sediment output. LR running at 100 ml/hr. Assessment completed, POC explained. no further needs at this time. Call light within reach.
[2021-05-09 20:30] VITALS: PULSE 95; TEMP 98
[2021-05-09 21:49] VITALS: BP 94/57
[2021-05-10] VITALS (7 sets, daily range): BP systolic 98–150; BP diastolic 43–70; PULSE 80–105; TEMP 97.6–98.5
--- NOTE | 2021-05-10 05:49 | NUR ---
Patient has had a calm night. Continue receiving LR 100 ML/HR. Report will be given to day RH.
[2021-05-10 06:36] LABS: BASO % 0.3 % (0.0-2.0); EOS # 0.3 K/mm3 (0.0-0.7); EOS % 2.9 % (0.0-4.0); GRAN # 6.4 K/mm3 (1.4-6.5); GRAN % 59.1 % (42.2-75.2); HEMATOCRIT 41.2 % (42.0-52.0); HEMOGLOBIN 13.4 g/dl (13.5-18.0); LYMPH # 3.1 K/mm3 (1.2-3.4); LYMPH % 29.1 % (20.0-51.0); MEAN CELL VOLUME 93 fl (80.0-100.0); MEAN CORPUSCULAR HEMOGLOBIN 30 pg (27-31); MEAN CORPUSCULAR HGB CONC 33 g/dl (33.0-37.0); MEAN PLATELET VOLUME 12.4 fl (7.4-10.4); MONO # 0.9 K/mm3 (0.1-0.6); MONO % 8.4 % (1.7-9.3); PLATELET COUNT 235 K/mm3 (130-400); RED BLOOD COUNT 4.43 M/mm3 (4.20-5.60); REDCELL DISTRIBUTION WIDTH-CV 14.3 % (11.5-14.5)
[2021-05-10 06:51] LABS: CALCIUM 8.7 mg/dL (8.4-10.2); CREATININE, serum 1.14 mg/dL (0.72-1.25); POTASSIUM 3.8 mmol/L (3.5-4.5)
[2021-05-10 07:12] LABS: TROPONIN-I 0.044 ng/mL (0.00-0.033)
--- NOTE | 2021-05-10 07:14 | NUR ---
Critical troponin 0.[address] Fisher.
--- NOTE | 2021-05-10 10:15 | NUR ---
CONTACTED NABIL MURDOCK WITH CRITICAL RISING TROPONIN 0.045.
--- NOTE | 2021-05-10 11:26 | NUR ---
First visit from the plumbing inspector. No needs right now.
--- NOTE | 2021-05-10 16:01 | NUR ---
Personnel Consultant spoke with Sariah Dietitian who advised patient is malnourished and if he discharged home, will need meals on wheels or have at least one meal provided for him daily. Patient had this service at one point, but no longer has it. SHANNON met with patient to discuss discharge planning. Patient lives alone in [place] and he sees Dr. Kline for primary care. Patient has Advance Directives in EMR which designates his friend, Lurdes as DPOA-HC. SW discussed discharge planning with patient and he states he would like to keep his apartment but does not know if he can care for himself anymore. SW discussed SNF referrals and patient states SW can talk with Lurdes about this. SW contacted Lurdes and left a message. SW then faxed referrals to [email or web address], and [facility]. SW collaborated with Therese, Personnel Consultant at Dr. Kline's office and she advised she has made several attempts to contact patient to assist with resources, however patient has not been responsive. Therese has also been unable to reach patient's DPOA-HC, Lurdes. Therese advised per PCP notes, Dr. Kline feels patient would benefit from long lines operator care. Patient was at [email or web address] last year, however discharged home and was not agreeable to senior care care at that time. SHANNON contacted Dilan Financial Counselor to follow up on Medicaid application. Discharge Plan: SNF referrals pending
--- NOTE | 2021-05-10 16:19 | NUR ---
Mail Censor spoke with patient's DPOA-HC, Lurdes who advised she sumbitted a Medicaid application and follow up documentation back in February. SW provided this update to Dilan, Financial Counselor and requested assistance with follow up. SHANNON updated Lurdes on SNF referrals.
--- NOTE | 2021-05-10 19:47 | NUR ---
Pt has had a very uneventful day. He did develop some loose stool toward the end of the shift. The only concerns the patient has regarding his stay is that his DPOA Lurdes is unable to be reached. He has concern that "something is seriously wrong." This RN did attempt to reach her today several times, but did not get an answer, nor did she call back. No further concerns at this time. Report given to JUAN RAMON Powell.
--- NOTE | 2021-05-10 20:30 | NUR ---
Initial shift assessment done- Tele on, Nikko with cloudy yellow urine- requesting snacks tonight- given, no other requests. Understands to call for requests, using call light appropriately-
[2021-05-11] VITALS (7 sets, daily range): BP systolic 107–123; BP diastolic 55–65; PULSE 89–101; TEMP 7.6
--- NOTE | 2021-05-11 04:59 | NUR ---
Quiet night- states has just a dull ache to lower abd/but denies need for pain meds- VSS, no requests.
[2021-05-11 06:28] LABS: BASO % 0.4 % (0.0-2.0); EOS # 0.4 K/mm3 (0.0-0.7); EOS % 3.5 % (0.0-4.0); GRAN # 6.7 K/mm3 (1.4-6.5); GRAN % 63.8 % (42.2-75.2); HEMOGLOBIN 12.4 g/dl (13.5-18.0); LYMPH # 2.5 K/mm3 (1.2-3.4); LYMPH % 23.8 % (20.0-51.0); MEAN CELL VOLUME 90 fl (80.0-100.0); MEAN CORPUSCULAR HEMOGLOBIN 30 pg (27-31); MEAN CORPUSCULAR HGB CONC 34 g/dl (33.0-37.0); MONO # 0.8 K/mm3 (0.1-0.6); MONO % 8.1 % (1.7-9.3); PLATELET COUNT 215 K/mm3 (130-400); RED BLOOD COUNT 4.09 M/mm3 (4.20-5.60); REDCELL DISTRIBUTION WIDTH-CV 14.1 % (11.5-14.5)
--- NOTE | 2021-05-11 06:30 | NUR ---
PT SLEEPING IN BED AT THIS TIME. WILL RETURN FOR AN ASSESSMENT. NO FURTHER CONCERNS AT THIS TIME.
[2021-05-11 06:33] LABS: HEMATOCRIT 36.9 % (42.0-52.0)
[2021-05-11 06:43] LABS: CALCIUM 8.4 mg/dL (8.4-10.2); CREATININE, serum 0.92 mg/dL (0.72-1.25); POTASSIUM 3.9 mmol/L (3.5-4.5)
--- NOTE | 2021-05-11 15:18 | NUR ---
[employer] Firer/Fireman faxed clinical updates to [place] [facility] [employer]. Masood at [facility] advised they can accept referral. SHANNON updated Masood that tentative DC date is for tomorrow. SHANNON attempted to conact patient's DPOA-HC to notify her of discharge plan and left a message. SHANNON met with patient who advised he is trying to rest but was agreeable to go to [facility]. Discharge Plan: [facility] SNF
--- NOTE | 2021-05-11 21:01 | NUR ---
Patient complained of level 2 pain to LLQ. Denied wanting anything for pain or discomfort. Patient voices no questions, needs, or concerns at this time. In bed with call light within reach.
[2021-05-12 04:38] VITALS: BP 105/62; PULSE 73; TEMP 98
--- NOTE | 2021-05-12 05:30 | NUR ---
Patient has been resting in bed with call light within reach. Voices no questions, needs, or concerns at this time. Bed alarm on.
[2021-05-12 08:22] VITALS: BP 106/61; PULSE 86; TEMP 97.5
--- NOTE | 2021-05-12 09:02 | NUR ---
Scheduled medications given. Shift assessment performed. Patient currmandielty on RA. El catheter inact, securment device in use, no kinks in tubing. VSS. Patient A&Ox4. Patient states that his chest is "tender" that is aggravated by cough, but denies any pain/pressure. Patient denies any further pain, discomfort, SOA, or further needs at this time. Call light in reach. Fall percautions in place.
--- NOTE | 2021-05-12 10:02 | NUR ---
SW informed that patient would be returning to [facility]. SW called facility to inform of information documentation sent to facility. Transporation time set up.
[2021-05-12] MEDS ORDERED: OMNICEF 300MG300 MG PO (10:06)
[2021-05-12 13:02] VITALS: BP 106/61; PULSE 86; TEMP 97.5
--- NOTE | 2021-05-12 13:50 | NUR ---
Patient deemed fit for discharge to [facility]. IV DC'd, catheter intact, no signs of phlebitis. Report called to JUAN RAMON No. Patient denies any pain, discomfort, SOA, or further needs at this time. Patient escorted from the building by [facility] staff via wheelchair. VSS. Patient A&O.
== END 2021-05-12 13:50 | DRG 698 ==
LOC: COL.ER 13:34 → MEDICAL 16:05
PROVIDERS: Nurse Practitioner; Physician Assistant; ADMIT Internal Medicine
DX: T83.518A Infection and inflammatory reaction due to other urinary catheter, initial encounter (principal); A41.9 Sepsis, unspecified organism; R65.20 Severe sepsis without septic shock; N39.0 Urinary tract infection, site not specified; N17.9 Acute kidney failure, unspecified; E87.2 Acidosis; E44.0 Moderate protein-calorie malnutrition; N40.0 Benign prostatic hyperplasia without lower urinary tract symptoms; I10 Essential (primary) hypertension; I25.10 Atherosclerotic heart disease of native coronary artery without angina pectoris; E78.5 Hyperlipidemia, unspecified; R07.9 Chest pain, unspecified; B96.4 Proteus (mirabilis) (morganii) as the cause of diseases classified elsewhere; Y73.1 Therapeutic (nonsurgical) and rehabilitative gastroenterology and urology devices associated with adverse incidents; Z20.822 Contact with and (suspected) exposure to COVID-19; Z86.718 Personal history of other venous thrombosis and embolism; I25.2 Old myocardial infarction; Z68.27 Body mass index [BMI] 27.0-27.9, adult
CPT/HCPCS: 99231-AI; 99232-AI; 99239; J0696; J1644; J7030; J7120

== ENCOUNTER → 2021-05-28 | Outpatient (CLI) | payer MEDICARE ==
[2021-05-28 15:25] LABS: BASO % 0.5 % (0.0-2.0); EOS # 0.3 K/mm3 (0.0-0.7); EOS % 3.8 % (0.0-4.0); GRAN # 4.1 K/mm3 (1.4-6.5); HEMATOCRIT 39.4 % (42.0-52.0); HEMOGLOBIN 13.1 g/dl (13.5-18.0); LYMPH # 2.4 K/mm3 (1.2-3.4); LYMPH % 32.1 % (20.0-51.0); MEAN CELL VOLUME 91 fl (80.0-100.0); MEAN CORPUSCULAR HEMOGLOBIN 30 pg (27-31); MEAN CORPUSCULAR HGB CONC 33 g/dl (33.0-37.0); MEAN PLATELET VOLUME 10.6 fl (7.4-10.4); MONO # 0.6 K/mm3 (0.1-0.6); MONO % 8.5 % (1.7-9.3); PLATELET COUNT 252 K/mm3 (130-400); RED BLOOD COUNT 4.31 M/mm3 (4.20-5.60)
[2021-05-28 15:38] LABS: CALCIUM 9.3 mg/dL (8.4-10.2); CREATININE, serum 1.13 mg/dL (0.72-1.25); POTASSIUM 4.2 mmol/L (3.5-4.5)
== END ==
LOC: ZLAB.STJ 10:51 → EDSTATUS 15:39 → ZLAB.STJ 15:43
PROVIDERS: Emergency Medicine
DX: N39.0 Urinary tract infection, site not specified (principal)

== ENCOUNTER → 2021-08-29 | Outpatient (CLI) | payer SELFPAY ==
[2021-08-29 17:20] LABS: BASO % 0.5 % (0.0-2.0); EOS # 0.4 K/mm3 (0.0-0.7); EOS % 5.9 % (0.0-4.0); GRAN # 3.7 K/mm3 (1.4-6.5); GRAN % 50.9 % (42.2-75.2); HEMATOCRIT 38.9 % (42.0-52.0); HEMOGLOBIN 12.6 g/dl (13.5-18.0); LYMPH # 2.4 K/mm3 (1.2-3.4); LYMPH % 32.5 % (20.0-51.0); MEAN CELL VOLUME 94 fl (80.0-100.0); MEAN CORPUSCULAR HEMOGLOBIN 30 pg (27-31); MEAN CORPUSCULAR HGB CONC 32 g/dl (33.0-37.0); MEAN PLATELET VOLUME 11.3 fl (7.4-10.4); MONO # 0.7 K/mm3 (0.1-0.6); MONO % 9.9 % (1.7-9.3); PLATELET COUNT 192 K/mm3 (130-400); RED BLOOD COUNT 4.15 M/mm3 (4.20-5.60); REDCELL DISTRIBUTION WIDTH-CV 14.7 % (11.5-14.5)
[2021-08-29 17:30] LABS: ALBUMIN 3.2 gm/dL (3.4-4.8); BILIRUBIN,TOTAL 0.5 mg/dL (0.2-1.2); CALCIUM 8.4 mg/dL (8.4-10.2); CREATININE, serum 1.01 mg/dL (0.72-1.25); POTASSIUM 4.5 mmol/L (3.5-4.5); TOTAL PROTEIN 6.3 gm/dL (6.2-8.1)
[2021-08-29 17:50] LABS: THYROID STIMULATING HORMONE 3.422 uIU/mL (0.350-4.940)
== END ==
LOC: ZLAB.STJ 16:06
PROVIDERS: Internal Medicine
DX: R53.1 Weakness (principal)

== ENCOUNTER 2021-11-02 00:10 | Inpatient (IN) | payer MEDICARE ==
[~2021-11-02] VITALS: Ht 175.3 cm; Wt 85.8 kg
[2021-11-02] VITALS (1014 sets, daily range): BP systolic 88–154; BP diastolic 52–85; PULSE 86–90; TEMP 97–98; O2SAT 79–100
[2021-11-02 00:30] LABS: HEMATOCRIT 44.4 % (42.0-52.0); HEMOGLOBIN 15.1 g/dl (13.5-18.0); MEAN CELL VOLUME 90 fl (80.0-100.0); MEAN CORPUSCULAR HEMOGLOBIN 31 pg (27-31); MEAN CORPUSCULAR HGB CONC 34 g/dl (33.0-37.0); MEAN PLATELET VOLUME 11.5 fl (7.4-10.4); PLATELET COUNT 165 K/mm3 (130-400); RED BLOOD COUNT 4.93 M/mm3 (4.20-5.60); REDCELL DISTRIBUTION WIDTH-CV 14.2 % (11.5-14.5)
[2021-11-02 00:36] LABS: INR 1.7 (0.8-3.0); PROTHROMBIN TIME 19.6 SECONDS (9.7-12.8)
[2021-11-02 00:46] LABS: COLLECTION METHOD CLEAN CATCH
[2021-11-02 00:51] LABS: BAND 32 % (0-10); LYMPHOCYTE 5 % (20.0-51.0); NEUTROPHILS 60 % (42.0-75.2); PLATELET ESTIMATE NORMAL (NORMAL)
[2021-11-02 00:52] LABS: ALBUMIN 2.6 gm/dL (3.4-4.8); BILIRUBIN,TOTAL 0.8 mg/dL (0.2-1.2); CALCIUM 9.2 mg/dL (8.4-10.2); CREATININE, serum 5.03 mg/dL (0.72-1.25); TOTAL PROTEIN 6.7 gm/dL (6.2-8.1)
[2021-11-02 00:57] LABS: MUCOUS Present (NOT PRESENT); PH 7 (5-8); SQUAMOUS EPITHELIAL 0-2 /hpf (0-10); URINE APPEARANCE Turbid (CLEAR/HAZY); URINE BACTERIA Many /hpf (NONE SEEN); URINE BLOOD 1+ (NEGATIVE); URINE COLOR Amber (YELLOW); URINE GLUCOSE Negative (NEGATIVE); URINE KETONE Trace (NEGATIVE); URINE NITRATE Negative (NEGATIVE); URINE PROTEIN(semi-quant) 2+ (NEGATIVE); URINE RBC >50 /hpf (0-2); URINE UROBILINOGEN Negative (NEGATIVE)
[2021-11-02 01:01] LABS: TROPONIN-I 0.268 ng/mL (0.00-0.033)
[2021-11-02] MEDS ORDERED: ASPIRIN 81M81 MG/TA2 PO (01:31)
[2021-11-02] MEDS ORDERED: COLESTID 1GM1 G PO (01:31)
[2021-11-02 07:30] LABS: HEMOGLOBIN 13.5 g/dl (13.5-18.0); MEAN CELL VOLUME 92 fl (80.0-100.0); MEAN CORPUSCULAR HEMOGLOBIN 30 pg (27-31); MEAN CORPUSCULAR HGB CONC 33 g/dl (33.0-37.0); MEAN PLATELET VOLUME 12.5 fl (7.4-10.4); PLATELET COUNT 177 K/mm3 (130-400); RED BLOOD COUNT 4.45 M/mm3 (4.20-5.60); REDCELL DISTRIBUTION WIDTH-CV 14.4 % (11.5-14.5)
[2021-11-02 07:39] LABS: CALCIUM 8.2 mg/dL (8.4-10.2); CREATININE, serum 4.52 mg/dL (0.72-1.25); POTASSIUM 4.7 mmol/L (3.5-4.5)
[2021-11-02 08:13] LABS: BAND 33 % (0-10); LYMPHOCYTE 4 % (20.0-51.0); METAMYELOCYTE 1 % (0-0); NEUTROPHILS 58 % (42.0-75.2); PLATELET ESTIMATE NORMAL (NORMAL); TOXIC GRANULATION PRESENT
[2021-11-02 08:24] LABS: ARTERIAL BLD GAS O2 SATURATION 96.5 % (92-100); ARTERIAL BLD GAS TCO2 CT 11.7; ARTERIAL BLOOD GAS BASE EXCESS -11.6 (-2-2); ARTERIAL BLOOD GAS HCO3 11.1 meq/L (22-26); ARTERIAL BLOOD GAS pH 7.37 (7.35-7.45)
[2021-11-02 08:25] LABS: ARTERIAL BLOOD GAS PCO2 19.5 mmHg (35-45)
[2021-11-02 22:21] LABS: ARTERIAL BLD GAS O2 SATURATION 94.8 % (92-100); ARTERIAL BLD GAS TCO2 CT 21.8; ARTERIAL BLOOD GAS BASE EXCESS 0.2 (-2-2); ARTERIAL BLOOD GAS HCO3 21.1 meq/L (22-26); ARTERIAL BLOOD GAS PCO2 24.8 mmHg (35-45); ARTERIAL BLOOD GAS PO2 63.9 mmHg (80-100); ARTERIAL BLOOD GAS pH 7.55 (7.35-7.45)
[2021-11-03] VITALS (969 sets, daily range): BP systolic 97–131; BP diastolic 49–68; PULSE 80–97; TEMP 96.6–98.9; O2SAT 71–100
[2021-11-03 05:02] LABS: HEMOGLOBIN 12.3 g/dl (13.5-18.0); MEAN CELL VOLUME 90 fl (80.0-100.0); MEAN CORPUSCULAR HEMOGLOBIN 30 pg (27-31); MEAN CORPUSCULAR HGB CONC 34 g/dl (33.0-37.0); MEAN PLATELET VOLUME 12.1 fl (7.4-10.4); PLATELET COUNT 120 K/mm3 (130-400); RED BLOOD COUNT 4.05 M/mm3 (4.20-5.60); REDCELL DISTRIBUTION WIDTH-CV 14.2 % (11.5-14.5)
[2021-11-03 05:09] LABS: HEMATOCRIT 36.6 % (42.0-52.0)
[2021-11-03 05:17] LABS: ALBUMIN 2.2 gm/dL (3.4-4.8); BILIRUBIN,TOTAL 0.5 mg/dL (0.2-1.2); CALCIUM 8.5 mg/dL (8.4-10.2); POTASSIUM 4.1 mmol/L (3.5-4.5); TOTAL PROTEIN 5.6 gm/dL (6.2-8.1)
[2021-11-03 05:39] LABS: CREATININE, serum 2.38 mg/dL (0.72-1.25)
[2021-11-03 06:05] LABS: BAND 16 % (0-10); LYMPHOCYTE 2 % (20.0-51.0); NEUTROPHILS 79 % (42.0-75.2); PLATELET ESTIMATE DECREASED (NORMAL)
[2021-11-03 06:33] LABS: INR 1.6 (0.8-3.0); PROTHROMBIN TIME 18.5 SECONDS (9.7-12.8)
[2021-11-04 03:26] VITALS: BP 131/75; PULSE 92; TEMP 97.6
[2021-11-04 07:44] LABS: INR 1.2 (0.8-3.0); PROTHROMBIN TIME 13.9 SECONDS (9.7-12.8)
[2021-11-04 07:53] LABS: HEMATOCRIT 35.5 % (42.0-52.0); HEMOGLOBIN 11.9 g/dl (13.5-18.0); MEAN CELL VOLUME 90 fl (80.0-100.0); MEAN CORPUSCULAR HEMOGLOBIN 30 pg (27-31); MEAN CORPUSCULAR HGB CONC 34 g/dl (33.0-37.0); PLATELET COUNT 94 K/mm3 (130-400); RED BLOOD COUNT 3.94 M/mm3 (4.20-5.60); REDCELL DISTRIBUTION WIDTH-CV 14.3 % (11.5-14.5)
[2021-11-04 08:01] LABS: ALBUMIN 2.2 gm/dL (3.4-4.8); BILIRUBIN,TOTAL 0.3 mg/dL (0.2-1.2); CALCIUM 8.4 mg/dL (8.4-10.2); CREATININE, serum 1.42 mg/dL (0.72-1.25); POTASSIUM 4.1 mmol/L (3.5-4.5); TOTAL PROTEIN 5.7 gm/dL (6.2-8.1)
[2021-11-04 08:07] VITALS: BP 114/77; PULSE 83; TEMP 97.5
[2021-11-04 09:11] LABS: BAND 8 % (0-10); LYMPHOCYTE 8 % (20.0-51.0); NEUTROPHILS 80 % (42.0-75.2); PLATELET ESTIMATE DECREASED (NORMAL)
[2021-11-04 12:15] VITALS: BP 112/56; PULSE 84; TEMP 98
[2021-11-04 17:10] VITALS: BP 111/69; PULSE 83; TEMP 97.8
[2021-11-04 19:27] VITALS: BP 117/68; PULSE 75; TEMP 97.5
[2021-11-04 23:30] VITALS: BP 117/64; PULSE 60; TEMP 97.4
[2021-11-05 03:06] VITALS: BP 122/78; PULSE 65; TEMP 97.3
[2021-11-05 06:57] LABS: INR 1.4 (0.8-3.0); PROTHROMBIN TIME 15.6 SECONDS (9.7-12.8)
[2021-11-05 06:59] LABS: BASO # 0.1 K/mm3 (0.0-0.2); BASO % 0.3 % (0.0-2.0); EOS % 0.1 % (0.0-4.0); GRAN # 15.1 K/mm3 (1.4-6.5); GRAN % 88.7 % (42.2-75.2); LYMPH # 1.1 K/mm3 (1.2-3.4); LYMPH % 6.3 % (20.0-51.0); MEAN CELL VOLUME 92 fl (80.0-100.0); MEAN CORPUSCULAR HEMOGLOBIN 31 pg (27-31); MEAN CORPUSCULAR HGB CONC 33 g/dl (33.0-37.0); MEAN PLATELET VOLUME 13.1 fl (7.4-10.4); MONO # 0.6 K/mm3 (0.1-0.6); MONO % 3.6 % (1.7-9.3); PLATELET COUNT 93 K/mm3 (130-400); RED BLOOD COUNT 3.94 M/mm3 (4.20-5.60); REDCELL DISTRIBUTION WIDTH-CV 14.3 % (11.5-14.5)
[2021-11-05 07:03] LABS: HEMATOCRIT 36.4 % (42.0-52.0)
[2021-11-05 07:04] LABS: ALBUMIN 2.1 gm/dL (3.4-4.8); BILIRUBIN,TOTAL 0.4 mg/dL (0.2-1.2); CALCIUM 8.1 mg/dL (8.4-10.2); CREATININE, serum 1.05 mg/dL (0.72-1.25); POTASSIUM 4.1 mmol/L (3.5-4.5); TOTAL PROTEIN 5.3 gm/dL (6.2-8.1)
[2021-11-05 08:02] VITALS: BP 116/68; PULSE 85; TEMP 97.5
[2021-11-05 11:30] VITALS: BP 137/85; PULSE 82; TEMP 98.1
[2021-11-05 15:57] VITALS: BP 141/83; PULSE 66; TEMP 98
[2021-11-05 20:24] VITALS: BP 136/80; PULSE 69; TEMP 97.4
[2021-11-05 23:35] VITALS: BP 111/71; PULSE 79; TEMP 97.5
[2021-11-06 03:59] VITALS: BP 136/82; PULSE 71; TEMP 97.4
[2021-11-06 05:52] LABS: HEMATOCRIT 40.4 % (42.0-52.0); HEMOGLOBIN 13.4 g/dl (13.5-18.0); MEAN CELL VOLUME 91 fl (80.0-100.0); MEAN CORPUSCULAR HEMOGLOBIN 30 pg (27-31); MEAN CORPUSCULAR HGB CONC 33 g/dl (33.0-37.0); MEAN PLATELET VOLUME 12.8 fl (7.4-10.4); PLATELET COUNT 106 K/mm3 (130-400); RED BLOOD COUNT 4.43 M/mm3 (4.20-5.60); REDCELL DISTRIBUTION WIDTH-CV 14.1 % (11.5-14.5)
[2021-11-06 06:04] LABS: CREATININE, serum 0.81 mg/dL (0.72-1.25); POTASSIUM 3.8 mmol/L (3.5-4.5)
[2021-11-06 07:14] LABS: BAND 3 % (0-10); LYMPHOCYTE 10 % (20.0-51.0); NEUTROPHILS 84 % (42.0-75.2); NUCLEATED RED BLOOD CELL 1 (0-6)
[2021-11-06 07:15] LABS: PLATELET ESTIMATE NORMAL (NORMAL)
[2021-11-06 08:25] VITALS: BP 141/86; PULSE 88; TEMP 97.4
[2021-11-06 12:05] VITALS: BP 156/81; PULSE 102; TEMP 98
[2021-11-06 15:01] VITALS: BP 136/83; PULSE 95; TEMP 97.5
[2021-11-06 19:55] VITALS: BP 125/79; PULSE 90; TEMP 97.7
[2021-11-06 23:40] VITALS: BP 107/69; PULSE 92; TEMP 97.7
[2021-11-07 03:37] VITALS: BP 141/82; PULSE 88; TEMP 97.3
[2021-11-07 06:47] LABS: CALCIUM 8.6 mg/dL (8.4-10.2); CREATININE, serum 0.88 mg/dL (0.72-1.25); POTASSIUM 4.3 mmol/L (3.5-4.5)
[2021-11-07 07:09] VITALS: BP 134/83; PULSE 90; TEMP 97.5
[2021-11-07 08:17] LABS: HEMATOCRIT 42.6 % (42.0-52.0); HEMOGLOBIN 14.6 g/dl (13.5-18.0); MEAN CELL VOLUME 89 fl (80.0-100.0); MEAN CORPUSCULAR HEMOGLOBIN 30 pg (27-31); MEAN CORPUSCULAR HGB CONC 34 g/dl (33.0-37.0); MEAN PLATELET VOLUME 12.3 fl (7.4-10.4); PLATELET COUNT 146 K/mm3 (130-400); RED BLOOD COUNT 4.81 M/mm3 (4.20-5.60)
[2021-11-07 09:17] LABS: BAND 8 % (0-10); LYMPHOCYTE 15 % (20.0-51.0); NEUTROPHILS 74 % (42.0-75.2); NUCLEATED RED BLOOD CELL 1 (0-6); PLATELET ESTIMATE NORMAL (NORMAL)
[2021-11-07 11:03] VITALS: BP 140/78; PULSE 103; TEMP 98.1
[2021-11-07 15:44] VITALS: BP 120/86; PULSE 97; TEMP 98.3
[2021-11-07 19:24] VITALS: BP 125/80; PULSE 88; TEMP 97.6
[2021-11-07 23:10] VITALS: BP 138/86; PULSE 86; TEMP 97.2
[2021-11-08 03:24] VITALS: BP 158/85; PULSE 85; TEMP 98.7
[2021-11-08 08:18] VITALS: BP 127/73; PULSE 92; TEMP 97.3
[2021-11-08 11:59] VITALS: BP 117/63; PULSE 87; TEMP 97.5
[2021-11-08 15:36] VITALS: BP 100/58; PULSE 90; TEMP 97.2
[2021-11-08 21:06] VITALS: BP 89/47; BP 93/60; PULSE 98; TEMP 97.9
[2021-11-08 23:08] VITALS: BP 101/57; PULSE 98; TEMP 97.5
[2021-11-09 04:19] VITALS: BP 106/60; PULSE 94; TEMP 97.7
[2021-11-09 08:30] VITALS: BP 113/58; PULSE 103; TEMP 97.6
[2021-11-09 12:14] VITALS: BP 98/68; PULSE 110; TEMP 97.1
[2021-11-09 15:20] VITALS: BP 95/65; PULSE 106; TEMP 97.5
[2021-11-09 20:00] VITALS: BP 113/65; PULSE 95; TEMP 98.5
[2021-11-10] VITALS (8 sets, daily range): BP systolic 91–136; BP diastolic 53–72; PULSE 80–96; TEMP 97.1–98.7
[2021-11-10 11:14] LABS: HEMATOCRIT 40.9 % (42.0-52.0); HEMOGLOBIN 13.8 g/dl (13.5-18.0); MEAN CELL VOLUME 90 fl (80.0-100.0); MEAN CORPUSCULAR HEMOGLOBIN 30 pg (27-31); MEAN CORPUSCULAR HGB CONC 34 g/dl (33.0-37.0); MEAN PLATELET VOLUME 11.4 fl (7.4-10.4); PLATELET COUNT 238 K/mm3 (130-400); RED BLOOD COUNT 4.54 M/mm3 (4.20-5.60); REDCELL DISTRIBUTION WIDTH-CV 14.5 % (11.5-14.5)
[2021-11-10 11:32] LABS: BAND 1 % (0-10); EOSINOPHIL 2 % (0-4); LYMPHOCYTE 16 % (20.0-51.0); NEUTROPHILS 78 % (42.0-75.2)
[2021-11-10 11:33] LABS: PLATELET ESTIMATE NORMAL (NORMAL)
[2021-11-10 11:37] LABS: ALBUMIN 2.3 gm/dL (3.4-4.8); BILIRUBIN,TOTAL 0.8 mg/dL (0.2-1.2); CALCIUM 8.5 mg/dL (8.4-10.2); POTASSIUM 4.2 mmol/L (3.5-4.5); TOTAL PROTEIN 5.8 gm/dL (6.2-8.1)
[2021-11-11 03:44] VITALS: BP 110/67; PULSE 86; TEMP 97.2
[2021-11-11 06:24] LABS: HEMATOCRIT 38.6 % (42.0-52.0); MEAN CELL VOLUME 91 fl (80.0-100.0); MEAN CORPUSCULAR HEMOGLOBIN 31 pg (27-31); MEAN CORPUSCULAR HGB CONC 34 g/dl (33.0-37.0); MEAN PLATELET VOLUME 12.5 fl (7.4-10.4); PLATELET COUNT 220 K/mm3 (130-400); RED BLOOD COUNT 4.26 M/mm3 (4.20-5.60); REDCELL DISTRIBUTION WIDTH-CV 14.7 % (11.5-14.5)
[2021-11-11 06:42] LABS: CALCIUM 8.3 mg/dL (8.4-10.2); CREATININE, serum 0.84 mg/dL (0.72-1.25); POTASSIUM 4.2 mmol/L (3.5-4.5)
[2021-11-11 07:20] LABS: BAND 2 % (0-10); EOSINOPHIL 1 % (0-4); LYMPHOCYTE 12 % (20.0-51.0); NEUTROPHILS 82 % (42.0-75.2); PLATELET ESTIMATE NORMAL (NORMAL)
[2021-11-11 08:00] VITALS: BP 108/65; PULSE 88; TEMP 97.5
[2021-11-11 11:41] VITALS: BP 131/80; PULSE 68; TEMP 97.7
[2021-11-11 16:00] VITALS: BP 118/65; PULSE 98; TEMP 97.8
[2021-11-11 21:11] VITALS: BP 96/60; PULSE 99; TEMP 97.4
[2021-11-12] VITALS (7 sets, daily range): BP systolic 101–119; BP diastolic 54–63; PULSE 88–94; TEMP 97.2–98.3
[2021-11-12 06:46] LABS: BASO % 0.1 % (0.0-2.0); EOS # 0.1 K/mm3 (0.0-0.7); EOS % 1.1 % (0.0-4.0); GRAN % 81.5 % (42.2-75.2); HEMATOCRIT 37.9 % (42.0-52.0); HEMOGLOBIN 12.2 g/dl (13.5-18.0); LYMPH # 1.4 K/mm3 (1.2-3.4); LYMPH % 11.7 % (20.0-51.0); MEAN CELL VOLUME 93 fl (80.0-100.0); MEAN CORPUSCULAR HEMOGLOBIN 30 pg (27-31); MEAN CORPUSCULAR HGB CONC 32 g/dl (33.0-37.0); MEAN PLATELET VOLUME 11.4 fl (7.4-10.4); MONO # 0.6 K/mm3 (0.1-0.6); MONO % 4.5 % (1.7-9.3); PLATELET COUNT 260 K/mm3 (130-400); RED BLOOD COUNT 4.09 M/mm3 (4.20-5.60); REDCELL DISTRIBUTION WIDTH-CV 14.4 % (11.5-14.5)
[2021-11-12 06:51] LABS: CALCIUM 8.1 mg/dL (8.4-10.2); CREATININE, serum 0.91 mg/dL (0.72-1.25); POTASSIUM 3.9 mmol/L (3.5-4.5)
[2021-11-13] VITALS (7 sets, daily range): BP systolic 96–110; BP diastolic 54–73; PULSE 86–97; TEMP 96.9–98.4
[2021-11-13 14:38] LABS: TROPONIN-I 0.049 ng/mL (0.00-0.033)
[2021-11-14 03:59] VITALS: BP 119/55; PULSE 91; TEMP 97.4
[2021-11-14 07:14] VITALS: BP 108/64; PULSE 92; TEMP 97.5
[2021-11-14 11:50] VITALS: BP 109/63; PULSE 97; TEMP 97.5
[2021-11-14 15:31] VITALS: BP 124/73; PULSE 94; TEMP 97.7
[2021-11-14 19:27] VITALS: BP 108/54; PULSE 108; TEMP 98.5
[2021-11-14 23:19] VITALS: BP 98/44; PULSE 94; TEMP 98.1
[2021-11-15 04:00] VITALS: BP 111/63; PULSE 92; TEMP 97.4
[2021-11-15 07:06] VITALS: BP 109/56; PULSE 111; TEMP 97.8
[2021-11-15 11:22] VITALS: BP 108/69; PULSE 97; TEMP 97.8
[2021-11-15 16:27] VITALS: BP 109/56; PULSE 105; TEMP 98.2
[2021-11-15 19:47] VITALS: BP 111/62; PULSE 104; TEMP 97.9
[2021-11-15 23:15] VITALS: BP 110/55; PULSE 88; TEMP 97.8
[2021-11-16 03:35] VITALS: BP 106/61; PULSE 92; TEMP 97.3
[2021-11-16 06:03] LABS: BASO % 0.3 % (0.0-2.0); EOS # 0.2 K/mm3 (0.0-0.7); EOS % 1.9 % (0.0-4.0); GRAN # 7.1 K/mm3 (1.4-6.5); HEMOGLOBIN 11.5 g/dl (13.5-18.0); LYMPH # 2.3 K/mm3 (1.2-3.4); LYMPH % 22.3 % (20.0-51.0); MEAN CELL VOLUME 91 fl (80.0-100.0); MEAN CORPUSCULAR HEMOGLOBIN 30 pg (27-31); MEAN CORPUSCULAR HGB CONC 33 g/dl (33.0-37.0); MEAN PLATELET VOLUME 10.9 fl (7.4-10.4); MONO # 0.6 K/mm3 (0.1-0.6); MONO % 6.1 % (1.7-9.3); PLATELET COUNT 270 K/mm3 (130-400); RED BLOOD COUNT 3.83 M/mm3 (4.20-5.60); REDCELL DISTRIBUTION WIDTH-CV 14.7 % (11.5-14.5)
[2021-11-16 06:08] LABS: HEMATOCRIT 34.8 % (42.0-52.0)
[2021-11-16 06:18] LABS: CALCIUM 8.6 mg/dL (8.4-10.2); CREATININE, serum 0.91 mg/dL (0.72-1.25); POTASSIUM 4.1 mmol/L (3.5-4.5)
[2021-11-16 07:28] VITALS: BP 108/58; PULSE 95; TEMP 97.5
[2021-11-16 11:34] VITALS: BP 105/57; PULSE 89; TEMP 97.9
[2021-11-16 15:52] VITALS: BP 111/59; PULSE 90; TEMP 97.8
[2021-11-16 19:23] VITALS: BP 106/64; PULSE 122; TEMP 97.8
[2021-11-17] VITALS (7 sets, daily range): BP systolic 97–117; BP diastolic 53–65; PULSE 83–104; TEMP 97.4–98.2
[2021-11-17 06:05] LABS: BASO # 0.1 K/mm3 (0.0-0.2); BASO % 0.6 % (0.0-2.0); EOS # 0.2 K/mm3 (0.0-0.7); EOS % 1.9 % (0.0-4.0); GRAN # 6.4 K/mm3 (1.4-6.5); GRAN % 68.2 % (42.2-75.2); HEMATOCRIT 37.6 % (42.0-52.0); HEMOGLOBIN 12.6 g/dl (13.5-18.0); LYMPH # 2.1 K/mm3 (1.2-3.4); LYMPH % 22.9 % (20.0-51.0); MEAN CELL VOLUME 90 fl (80.0-100.0); MEAN CORPUSCULAR HEMOGLOBIN 30 pg (27-31); MEAN CORPUSCULAR HGB CONC 34 g/dl (33.0-37.0); MEAN PLATELET VOLUME 11.2 fl (7.4-10.4); MONO # 0.6 K/mm3 (0.1-0.6); MONO % 6.1 % (1.7-9.3); PLATELET COUNT 292 K/mm3 (130-400); RED BLOOD COUNT 4.17 M/mm3 (4.20-5.60); REDCELL DISTRIBUTION WIDTH-CV 14.6 % (11.5-14.5)
[2021-11-17 06:29] LABS: CALCIUM 9.3 mg/dL (8.4-10.2); CREATININE, serum 1.01 mg/dL (0.72-1.25); POTASSIUM 4.2 mmol/L (3.5-4.5)
[2021-11-18 07:15] VITALS: BP 104/70; PULSE 90; TEMP 97.3
[2021-11-18 15:14] VITALS: BP 103/66; PULSE 76; TEMP 97.6
[2021-11-19 01:02] VITALS: BP 122/70; PULSE 101; TEMP 97.5
[2021-11-19 08:10] VITALS: BP 118/59; PULSE 80; TEMP 97.4
[2021-11-19 15:01] VITALS: BP 115/63; PULSE 75; TEMP 97.5
[2021-11-19 19:50] VITALS: BP 100/59; PULSE 100; TEMP 97.7
[2021-11-19 23:56] VITALS: BP 93/56; PULSE 93; TEMP 97.7
[2021-11-20 04:39] VITALS: BP 119/69; PULSE 102; TEMP 97.5
[2021-11-20 08:00] VITALS: BP 110/65; PULSE 98; TEMP 97.4
[2021-11-20 16:55] VITALS: BP 117/62; PULSE 95; TEMP 97.5
[2021-11-21 00:59] VITALS: BP 109/70; PULSE 91; TEMP 97.5
[2021-11-21 06:30] LABS: BASO # 0.1 K/mm3 (0.0-0.2); BASO % 0.7 % (0.0-2.0); EOS # 0.2 K/mm3 (0.0-0.7); EOS % 3.3 % (0.0-4.0); GRAN # 4.3 K/mm3 (1.4-6.5); GRAN % 59.4 % (42.2-75.2); LYMPH # 2.1 K/mm3 (1.2-3.4); LYMPH % 29.5 % (20.0-51.0); MEAN CELL VOLUME 91 fl (80.0-100.0); MEAN CORPUSCULAR HEMOGLOBIN 30 pg (27-31); MEAN CORPUSCULAR HGB CONC 33 g/dl (33.0-37.0); MEAN PLATELET VOLUME 11.1 fl (7.4-10.4); MONO # 0.5 K/mm3 (0.1-0.6); MONO % 6.8 % (1.7-9.3); PLATELET COUNT 215 K/mm3 (130-400); RED BLOOD COUNT 4.03 M/mm3 (4.20-5.60); REDCELL DISTRIBUTION WIDTH-CV 14.6 % (11.5-14.5)
[2021-11-21 06:41] LABS: CALCIUM 9.3 mg/dL (8.4-10.2); CREATININE, serum 0.96 mg/dL (0.72-1.25); POTASSIUM 4.4 mmol/L (3.5-4.5)
[2021-11-21 06:41] LABS: HEMATOCRIT 36.6 % (42.0-52.0)
[2021-11-21 08:00] VITALS: BP 88/58; PULSE 88; TEMP 97.3
[2021-11-21 10:15] VITALS: BP 109/51
[2021-11-21 15:34] VITALS: BP 111/64; PULSE 88; TEMP 97.6
[2021-11-22 00:20] VITALS: BP 104/61; PULSE 89; TEMP 98.4
[2021-11-22 07:14] VITALS: BP 92/58; PULSE 88; TEMP 97.4
[2021-11-22 15:47] VITALS: BP 110/67; PULSE 83; TEMP 97.4
[2021-11-23 00:45] VITALS: BP 105/58; PULSE 92; TEMP 97.6
[2021-11-23 08:36] VITALS: BP 112/64; PULSE 93; TEMP 97.4
[2021-11-23 16:15] VITALS: BP 107/60; PULSE 86; TEMP 98.1
[2021-11-24 00:50] VITALS: BP 108/64; PULSE 92; TEMP 98.4
[2021-11-24 07:16] VITALS: BP 115/65; PULSE 94; TEMP 97.5
[2021-11-24 15:26] VITALS: BP 108/47; PULSE 93; TEMP 97.5
[2021-11-24 23:18] VITALS: BP 101/68; PULSE 99; TEMP 98
[2021-11-25 08:29] VITALS: BP 96/68; PULSE 84; TEMP 97.5
[2021-11-25 16:36] VITALS: BP 110/66; PULSE 85; TEMP 97.8
[2021-11-26 00:01] VITALS: BP 97/53; PULSE 84; TEMP 97.6
[2021-11-26 07:53] VITALS: BP 116/65; PULSE 88; TEMP 97.5
[2021-11-26 15:49] VITALS: BP 103/68; PULSE 93; TEMP 97.7
[2021-11-26 23:34] VITALS: BP 98/59; PULSE 94; TEMP 98.2
[2021-11-27 07:02] VITALS: BP 99/61; PULSE 90; TEMP 97.5
[2021-11-27] MEDS ORDERED: PLAVIX 75MG TAB75 MG PO (09:05)
[2021-11-27] MEDS ORDERED: ELIQUIS 2.5 PO (09:05)
[2021-11-27] MEDS ORDERED: JARDIANCE10 PO (09:06)
[2021-11-27] MEDS ORDERED: DESENEX TP (09:07)
[2021-11-27] MEDS ORDERED: LOPRESSOR 225 MG/TAB PO (09:13)
[2021-11-27] MEDS ORDERED: LIPITOR 40MG TA40 MG PO (09:13)
== END 2021-11-27 16:23 | disposition home health service (06) | DRG 871 ==
LOC: COL.ER → MEDICAL 01:35 → ICU 01:35 → MEDICAL 11-03 20:42
PROVIDERS: Emergency Medicine; Internal Medicine; Internal Medicine Pulmonary Disease; Physician Assistant; ADMIT Student in an Organized Health Care Education/Training Program
PROC: 02HV33Z Insertion of Infusion Device into Superior Vena Cava, Percutaneous Approach (ICD-10-PCS; principal; 2021-11-02)
PROC: 03HY32Z Insertion of Monitoring Device into Upper Artery, Percutaneous Approach (ICD-10-PCS; 2021-11-02)
PROC: 4A133B1 Monitoring of Arterial Pressure, Peripheral, Percutaneous Approach (ICD-10-PCS; 2021-11-02)
PROC: 4A133J1 Monitoring of Arterial Pulse, Peripheral, Percutaneous Approach (ICD-10-PCS; 2021-11-02)
PROC: 3E043XZ Introduction of Vasopressor into Central Vein, Percutaneous Approach (ICD-10-PCS; 2021-11-02)
DX: A41.50 Gram-negative sepsis, unspecified (principal); R65.21 Severe sepsis with septic shock; U07.1 COVID-19; R57.1 Hypovolemic shock; J96.01 Acute respiratory failure with hypoxia; D65 Disseminated intravascular coagulation [defibrination syndrome]; G93.41 Metabolic encephalopathy; I21.A1 Myocardial infarction type 2; N17.9 Acute kidney failure, unspecified; E87.2 Acidosis; N39.0 Urinary tract infection, site not specified; I50.20 Unspecified systolic (congestive) heart failure; Z16.29 Resistance to other single specified antibiotic; I95.9 Hypotension, unspecified; I25.10 Atherosclerotic heart disease of native coronary artery without angina pectoris; E78.5 Hyperlipidemia, unspecified; N20.0 Calculus of kidney; N40.0 Benign prostatic hyperplasia without lower urinary tract symptoms; E83.52 Hypercalcemia; K21.9 Gastro-esophageal reflux disease without esophagitis; B96.1 Klebsiella pneumoniae [K. pneumoniae] as the cause of diseases classified elsewhere; B96.89 Other specified bacterial agents as the cause of diseases classified elsewhere; N21.0 Calculus in bladder; B96.4 Proteus (mirabilis) (morganii) as the cause of diseases classified elsewhere; G31.84 Mild cognitive impairment of uncertain or unknown etiology; F32.A Depression, unspecified; I49.3 Ventricular premature depolarization; I34.0 Nonrheumatic mitral (valve) insufficiency; Z79.82 Long term (current) use of aspirin; Z86.718 Personal history of other venous thrombosis and embolism; Z79.01 Long term (current) use of anticoagulants
CPT/HCPCS: A9270; J0692; J0696; J1100; J1650; J1720; J2543; J7030; J7060; J7120

== ENCOUNTER 2021-12-12 11:54 | Emergency (ER) | payer SELFPAY ==
[~2021-12-12] VITALS: Ht 177.8 cm; Wt 77.3 kg
[~2021-12-12 11:54] MED LIST changes: +ASPIRIN 81M81 MG/TA2 PO; +COLESTID 1GM1 G PO; +ELIQUIS 2.5 PO; +JARDIANCE10 PO; +LIPITOR 40MG TA40 MG PO; +PLAVIX 75MG TAB75 MG PO
[2021-12-12 12:19] VITALS: TEMP 97.6
[2021-12-12 13:27] LABS: BASO % 0.3 % (0.0-2.0); EOS # 0.1 K/mm3 (0.0-0.7); EOS % 0.4 % (0.0-4.0); GRAN # 9.9 K/mm3 (1.4-6.5); GRAN % 79.2 % (42.2-75.2); HEMOGLOBIN 12.9 g/dl (13.5-18.0); LYMPH # 1.7 K/mm3 (1.2-3.4); LYMPH % 13.5 % (20.0-51.0); MEAN CELL VOLUME 90 fl (80.0-100.0); MEAN CORPUSCULAR HEMOGLOBIN 30 pg (27-31); MEAN CORPUSCULAR HGB CONC 33 g/dl (33.0-37.0); MEAN PLATELET VOLUME 11.6 fl (7.4-10.4); MONO # 0.8 K/mm3 (0.1-0.6); MONO % 6.3 % (1.7-9.3); PLATELET COUNT 295 K/mm3 (130-400); RED BLOOD COUNT 4.35 M/mm3 (4.20-5.60); REDCELL DISTRIBUTION WIDTH-CV 15.5 % (11.5-14.5)
[2021-12-12 13:41] LABS: COLLECTION METHOD CATHETER
[2021-12-12 13:45] LABS: ALBUMIN 3.2 gm/dL (3.4-4.8); BILIRUBIN,TOTAL 0.7 mg/dL (0.2-1.2); CALCIUM 9.6 mg/dL (8.4-10.2); CREATININE, serum 1.09 mg/dL (0.72-1.25); POTASSIUM 4.6 mmol/L (3.5-4.5)
[2021-12-12 14:00] LABS: TOTAL PROTEIN 7.8 gm/dL (6.2-8.1)
[2021-12-12 14:04] LABS: MUCOUS Present (NOT PRESENT); SQUAMOUS EPITHELIAL 0-2 /hpf (0-10); URINE BACTERIA Moderate /hpf (NONE SEEN); URINE RBC >50 /hpf (0-2)
[2021-12-12 14:06] LABS: PH 5.5 (5.0-8.5); URINE APPEARANCE Cloudy (CLEAR/HAZY); URINE BLOOD 3+ (NEGATIVE); URINE COLOR Yellow (YELLOW); URINE GLUCOSE Negative (NEGATIVE); URINE KETONE Negative (NEGATIVE); URINE NITRATE Positive (NEGATIVE); URINE PROTEIN(semi-quant) 3+ (NEGATIVE); URINE UROBILINOGEN 0.2 E.U/dL (0.2-1.0)
[2021-12-12] MEDS ORDERED: CIPRO 500MG TA500 MG PO (15:50)
[2021-12-12 16:30] VITALS: BP 147/72; PULSE 96
--- NOTE | 2021-12-12 16:45 | NUR ---
stucco worker contacted patient's guardian, Carmelo Talavera, of patient's admission. Lurdes Pike was present and this worker and a [facility] police superintendent provided Lurdes the court order ordering her to give patient's money to Carmelo Talavera. Lurdes would not partake in this conversation. Worker contacted [facility] as they are accepting patient to skilled care. Worker notified Carmelo of the above information. [facility] is transporting patient today at 4:45 to their facility.
== END 2021-12-12 14:48 ==
LOC: COL.ER 11:54
PROVIDERS: Physician Assistant
DX: N39.0 Urinary tract infection, site not specified (principal); U07.1 COVID-19; I95.9 Hypotension, unspecified; R74.02 Elevation of levels of lactic acid dehydrogenase [LDH]; R77.8 Other specified abnormalities of plasma proteins
CPT/HCPCS: J2405; J2543; J7030

== ENCOUNTER 2022-01-19 19:04 | Emergency (ER) | payer SELFPAY ==
[~2022-01-19] VITALS: Ht 172.7 cm; Wt 81.8 kg
[~2022-01-19 19:04] MED LIST changes: +CIPRO 500MG TA500 MG PO
[2022-01-19 19:17] VITALS: TEMP 97.6
[2022-01-19 19:48] LABS: COLLECTION METHOD CATHETER
[2022-01-19 19:52] LABS: PH 5.5 (5.0-8.5); URINE APPEARANCE Cloudy (CLEAR/HAZY); URINE COLOR OTHER (YELLOW); URINE GLUCOSE Negative (NEGATIVE); URINE KETONE TRACE (NEGATIVE); URINE PROTEIN(semi-quant) 3+ (NEGATIVE)
[2022-01-19 19:53] LABS: URINE BLOOD 3+ (NEGATIVE); URINE NITRATE Positive (NEGATIVE)
[2022-01-19 19:56] LABS: BASO # 0.1 K/mm3 (0.0-0.2); BASO % 0.6 % (0.0-2.0); EOS # 0.3 K/mm3 (0.0-0.7); EOS % 3.2 % (0.0-4.0); GRAN # 5.5 K/mm3 (1.4-6.5); GRAN % 66.8 % (42.2-75.2); HEMATOCRIT 39.4 % (42.0-52.0); HEMOGLOBIN 13.1 g/dl (13.5-18.0); LYMPH # 1.8 K/mm3 (1.2-3.4); LYMPH % 21.3 % (20.0-51.0); MEAN CELL VOLUME 89 fl (80.0-100.0); MEAN CORPUSCULAR HEMOGLOBIN 30 pg (27-31); MEAN CORPUSCULAR HGB CONC 33 g/dl (33.0-37.0); MEAN PLATELET VOLUME 11.6 fl (7.4-10.4); MONO # 0.7 K/mm3 (0.1-0.6); MONO % 7.9 % (1.7-9.3); PLATELET COUNT 208 K/mm3 (130-400); RED BLOOD COUNT 4.41 M/mm3 (4.20-5.60); REDCELL DISTRIBUTION WIDTH-CV 15.4 % (11.5-14.5)
[2022-01-19 19:56] LABS: AMORPHOUS CRYSTAL Present (NOT PRESENT); MUCOUS Present (NOT PRESENT); SQUAMOUS EPITHELIAL None Seen /hpf (0-10); URINE BACTERIA Rare /hpf (NONE SEEN); URINE RBC >50 /hpf (0-2)
[2022-01-19 20:13] LABS: ALBUMIN 3.1 gm/dL (3.4-4.8); BILIRUBIN,TOTAL 0.6 mg/dL (0.2-1.2); CREATININE, serum 1.07 mg/dL (0.72-1.25); POTASSIUM 3.9 mmol/L (3.5-4.5); TOTAL PROTEIN 6.7 gm/dL (6.2-8.1)
[2022-01-19] MEDS ORDERED: CEPHALEXIN500 M1 PO (21:45)
[2022-01-19 22:20] VITALS: BP 140/87; PULSE 62
== END 2022-01-19 22:20 | disposition home or self-care (01) ==
LOC: COL.ER 19:04
PROVIDERS: Nurse Practitioner Family
DX: N39.0 Urinary tract infection, site not specified (principal); Z87.448 Personal history of other diseases of urinary system; Z86.16 Personal history of COVID-19; Z96.0 Presence of urogenital implants

== ENCOUNTER 2022-02-10 13:40 | Emergency (ER) | payer SELFPAY ==
[~2022-02-10] VITALS: Ht 180.3 cm; Wt 77.3 kg
[2022-02-10 14:44] LABS: ALBUMIN 3.7 gm/dL (3.4-4.8); BILIRUBIN,TOTAL 0.9 mg/dL (0.2-1.2); CALCIUM 9.9 mg/dL (8.4-10.2); CREATININE, serum 1.13 mg/dL (0.72-1.25); POTASSIUM 3.9 mmol/L (3.5-4.5); TOTAL PROTEIN 7.9 gm/dL (6.2-8.1)
[2022-02-10 15:09] LABS: BASO % 0.5 % (0.0-2.0); EOS # 0.3 K/mm3 (0.0-0.7); EOS % 4.3 % (0.0-4.0); GRAN # 4.8 K/mm3 (1.4-6.5); GRAN % 59.8 % (42.2-75.2); HEMATOCRIT 41.7 % (42.0-52.0); HEMOGLOBIN 12.9 g/dl (13.5-18.0); LYMPH # 2.1 K/mm3 (1.2-3.4); LYMPH % 26.5 % (20.0-51.0); MEAN CELL VOLUME 97 fl (80.0-100.0); MEAN CORPUSCULAR HEMOGLOBIN 30 pg (27-31); MEAN CORPUSCULAR HGB CONC 31 g/dl (33.0-37.0); MEAN PLATELET VOLUME 11.5 fl (7.4-10.4); MONO # 0.7 K/mm3 (0.1-0.6); MONO % 8.6 % (1.7-9.3); PLATELET COUNT 182 K/mm3 (130-400); RED BLOOD COUNT 4.32 M/mm3 (4.20-5.60); REDCELL DISTRIBUTION WIDTH-CV 15.4 % (11.5-14.5)
[2022-02-10 15:26] LABS: COLLECTION METHOD CLEAN CATCH
[2022-02-10 15:36] LABS: URINE APPEARANCE Cloudy (CLEAR/HAZY); URINE COLOR Red (YELLOW)
[2022-02-10 15:37] LABS: PH 5.5 (5.0-8.5); URINE BLOOD 3+ (NEGATIVE); URINE GLUCOSE Negative (NEGATIVE); URINE KETONE 1+ (NEGATIVE); URINE NITRATE Positive (NEGATIVE); URINE PROTEIN(semi-quant) 2+ (NEGATIVE)
[2022-02-10 15:47] LABS: MUCOUS Present (NOT PRESENT); SQUAMOUS EPITHELIAL 0-2 /hpf (0-10); URINE BACTERIA None Seen /hpf (NONE SEEN); URINE RBC >50 /hpf (0-2)
[2022-02-10] MEDS ORDERED: CEPHALEXIN500 M1 PO (15:51)
[2022-02-10 18:33] VITALS: BP 130/84; PULSE 80
== END 2022-02-10 18:37 ==
LOC: COL.ER 13:40
PROVIDERS: Family Medicine
DX: E86.0 Dehydration (principal); Z28.310 Unvaccinated for COVID-19
CPT/HCPCS: J0696; J7030; J7120

== ENCOUNTER 2022-04-25 21:06 | Emergency (ER) | payer MEDICAID ==
[~2022-04-25 21:06] MED LIST changes: +BACTRIM DS 8001 TAB PO
[2022-04-25 21:40] LABS: BASO # 0.1 K/mm3 (0.0-0.2); BASO % 0.6 % (0.0-2.0); EOS # 0.3 K/mm3 (0.0-0.7); EOS % 3.8 % (0.0-4.0); GRAN # 5.3 K/mm3 (1.4-6.5); GRAN % 59.9 % (42.2-75.2); HEMATOCRIT 44.3 % (42.0-52.0); HEMOGLOBIN 14.9 g/dl (13.5-18.0); LYMPH # 2.6 K/mm3 (1.2-3.4); LYMPH % 29.5 % (20.0-51.0); MEAN CELL VOLUME 88 fl (80.0-100.0); MEAN CORPUSCULAR HEMOGLOBIN 30 pg (27-31); MEAN CORPUSCULAR HGB CONC 34 g/dl (33.0-37.0); MEAN PLATELET VOLUME 12.3 fl (7.4-10.4); MONO # 0.5 K/mm3 (0.1-0.6); PLATELET COUNT 185 K/mm3 (130-400); RED BLOOD COUNT 5.04 M/mm3 (4.20-5.60)
[2022-04-25 21:52] LABS: ALBUMIN 3.5 gm/dL (3.4-4.8); BILIRUBIN,TOTAL 1.1 mg/dL (0.2-1.2); CALCIUM 9.7 mg/dL (8.4-10.2); CREATININE, serum 1.09 mg/dL (0.72-1.25); POTASSIUM 3.9 mmol/L (3.5-4.5); TOTAL PROTEIN 7.1 gm/dL (6.2-8.1)
[2022-04-26 01:12] VITALS: TEMP 98.4
[2022-04-26 01:33] VITALS: BP 103/55; PULSE 95
[2022-05-01] MEDS ORDERED: MONODOX100 PO ×2 (11:19)
[2022-05-02] MEDS ORDERED: ZOFRAN ODT4 MG PO (09:30)
[2022-05-02] MEDS ORDERED: MEGACE ORAL40 MG/ML PO (09:30)
[2022-05-02] MEDS ORDERED: PHOSPHA 250 NEU1 TAB PO (09:30)
[2022-05-02] MEDS ORDERED: PROTONIX 40MG T40 MG PO (09:30)
[2022-05-02] MEDS ORDERED: CEPHALEXIN250 M1 PO (09:42)
== END 2022-04-26 01:33 | disposition home or self-care (01) ==
LOC: COL.ER 21:06
PROVIDERS: Personal Emergency Response Attendant
DX: R11.2 Nausea with vomiting, unspecified (principal); Z46.6 Encounter for fitting and adjustment of urinary device
CPT/HCPCS: J2405; J7040; Q9967

== ENCOUNTER 2022-06-14 19:36 | Emergency (ER) | payer MEDICARE, MEDICAID ==
[~2022-06-14] VITALS: Ht 175.3 cm; Wt 85.9 kg
[~2022-06-14 19:36] MED LIST changes: +CEPHALEXIN250 M1 PO; +MEGACE ORAL40 MG/ML PO; +MONODOX100 PO; +PHOSPHA 250 NEU1 TAB PO
[2022-06-14 20:36] LABS: BASO # 0.1 K/mm3 (0.0-0.2); BASO % 0.7 % (0.0-2.0); EOS # 0.4 K/mm3 (0.0-0.7); EOS % 5.7 % (0.0-4.0); GRAN % 66.4 % (42.2-75.2); HEMATOCRIT 32.3 % (42.0-52.0); HEMOGLOBIN 10.7 g/dl (13.5-18.0); LYMPH # 1.5 K/mm3 (1.2-3.4); LYMPH % 20.3 % (20.0-51.0); MEAN CELL VOLUME 92 fl (80.0-100.0); MEAN CORPUSCULAR HEMOGLOBIN 31 pg (27-31); MEAN CORPUSCULAR HGB CONC 33 g/dl (33.0-37.0); MEAN PLATELET VOLUME 10.4 fl (7.4-10.4); MONO # 0.5 K/mm3 (0.1-0.6); MONO % 6.5 % (1.7-9.3); PLATELET COUNT 289 K/mm3 (130-400); RED BLOOD COUNT 3.51 M/mm3 (4.20-5.60); REDCELL DISTRIBUTION WIDTH-CV 16.1 % (11.5-14.5)
[2022-06-14 20:43] LABS: INR 1.6 (0.8-3.0)
[2022-06-14 20:51] LABS: ALBUMIN 3.1 gm/dL (3.4-4.8); BILIRUBIN,TOTAL 0.3 mg/dL (0.2-1.2); C-REACTIVE PROTEIN 1.31 mg/dL (0.00-0.50); CREATININE, serum 1.13 mg/dL (0.72-1.25); POTASSIUM 4.4 mmol/L (3.5-4.5); TOTAL PROTEIN 6.6 gm/dL (6.2-8.1)
[2022-06-14 21:25] LABS: COLLECTION METHOD CATHETER
[2022-06-14 21:30] LABS: URINE APPEARANCE Clear (CLEAR/HAZY); URINE BLOOD 1+ (NEGATIVE); URINE COLOR Yellow (YELLOW); URINE GLUCOSE Negative (NEGATIVE); URINE KETONE Negative (NEGATIVE); URINE NITRATE Negative (NEGATIVE); URINE PROTEIN(semi-quant) Negative (NEGATIVE); URINE UROBILINOGEN 0.2 E.U/dL (0.2-1.0)
[2022-06-14 21:36] LABS: MUCOUS Present (NOT PRESENT); SQUAMOUS EPITHELIAL None Seen /hpf (0-10); URINE BACTERIA None Seen /hpf (NONE SEEN); URINE RBC 20-50 /hpf (0-2)
[2022-06-14 23:45] VITALS: BP 123/67; PULSE 100; TEMP 98.9
== END 2022-06-14 23:45 | disposition home or self-care (01) ==
LOC: COL.ER 19:36
PROVIDERS: Family Medicine
DX: R41.82 Altered mental status, unspecified (principal); Z86.59 Personal history of other mental and behavioral disorders

== ENCOUNTER → 2022-07-03 | Outpatient (CLI) | payer MEDICARE, MEDICAID | LOC: COL.RAD 09:09 | DX: C61 Malignant neoplasm of prostate (principal) | CPT/HCPCS: A9503 ==

== ENCOUNTER 2022-07-24 10:20 | Day surgery (SDC) | payer MEDICARE, MEDICAID ==
[~2022-07-24] VITALS: Ht 175.3 cm; Wt 79.4 kg
[2022-07-24 10:54] VITALS: BP 127/73; PULSE 88; TEMP 98
[2022-07-24] MEDS ORDERED: ELIQUIS 5MG PO (10:59)
[2022-07-24] MEDS ORDERED: CRESTOR 10MG10 MG PO (11:00)
[2022-07-24] MEDS ORDERED: ACIDOPHILIS PO (11:01)
[2022-07-24] MEDS ORDERED: FERROUS SU325 MG/TAB PO (11:01)
[2022-07-24 11:40] VITALS: BP 92/56; PULSE 81; TEMP 97.3
[2022-07-24 11:55] VITALS: BP 105/70; PULSE 79
[2022-07-24 12:10] VITALS: BP 119/76; PULSE 78
[2022-07-24 12:25] VITALS: BP 127/80; PULSE 79
[2022-07-24 12:40] VITALS: BP 135/85; PULSE 66
--- NOTE | 2022-07-24 13:59 | NUR ---
1140: PATIENT TO BAY 5 PER CART FROM ENDO SUITE. PATIENT GROGGY BUT OPENS EYES WHEN NAME CALLED. REPORT RECEVIED FROM ENDO NURSE. VS STABLE. BREATHING EVEN AND UNLABORED. YELLOW URINE NOTED IN FITZGERALD BAG. RESTING IN COT. RAILS UP. CALL LIGHT IN REACH CLAUDIA, PATIENT DPOA, AT BEDSIDE. 1145: DR. MEDINA IN TO SPEAK WITH PATIENT AT THIS TIME. PATIENT STATED HE WAS TO TRIED TO SPEAK WITH HER AT THIS TIME. 1155: VS REMAIN STABLE. PATIENT RESTING WITH EYES CLOSED BUT OPENS THEM WHEN NAME IS CALLED. NO NEEDS NOTED AT THIS TIME. CLAUDIA REMAINS AT BEDSIDE. CALL LIGHT IN REACH. 1210: VS REMAIN STABLE. PATIENT REQUESTING A MUFFIN AND JUICE AT THIS TIME. RESTING IN COT WITH EYES OPEN. RAILS UP. CALL LIGHT IN REACH. CLAUDIA REMAINS AT BEDSIDE. 1225: VS REMAIN STABLE. PATIENT TOLERATING JUICE AND MUFFIN. PATIENT HAS NO NEEDS AT THIS TIME. AWAITING DR. MEDINA TO SPEAK WITH PATIENT. 1240: VS REAMIN STABLE. DR. MEDINA IN TO SPEAK WITH PATIENT AND CLAUDIA AT THIS TIME. NO FURTHER NEEDS NOTED. CALL LIGHT IN REACH. 1250: DISCHARGE EDUCATION COMPLETED AT THIS TIME. PATIENT AND CLAUDIA STATED UNDERSTANDING OF INDTRUCTIONS. DISCHARGE PAPERWORK GIVEN TO PATIENT. IV DC'S AT THIS TIME. ASSISTED PATIENT WITH DRESSING AND TRANSFERED X1 ASSIST TO WHEELCHAIR. 1300: PATIENT OFF UNIT VIA WHEELCHAIR AT THIS TIME. PATIENT DISCHARGED TO HOME WITH CLAUDIA PER PERSONAL VEHICLE.
== END 2022-07-24 13:00 | disposition home or self-care (01) ==
LOC: SDCO 10:20
DX: K21.00 Gastro-esophageal reflux disease with esophagitis, without bleeding (principal); K44.9 Diaphragmatic hernia without obstruction or gangrene; K22.4 Dyskinesia of esophagus; I50.30 Unspecified diastolic (congestive) heart failure; C61 Malignant neoplasm of prostate; R63.39 Other feeding difficulties; R13.10 Dysphagia, unspecified; R05.9 Cough, unspecified; Z86.718 Personal history of other venous thrombosis and embolism; Z95.828 Presence of other vascular implants and grafts; Z79.01 Long term (current) use of anticoagulants
CPT/HCPCS: J2704; J7120